=== PATIENT | male | born 1975 | race Caucasian/White ===

== ENCOUNTER 2018-03-20 16:35 | Emergency (ER) | payer MEDICARE, MEDICAID ==
--- NOTE | 2018-03-20 17:00 | ED Physician Chart ---
ED Chief Complaint/HPI - Patient Information Date Seen:: 03/20/18 Time Seen:: 16:35 Chief Complaint:: Agitation History of Present Illness:: onset x 2 days of agitation and aggressive/hostile behavior; no report of trauma , SIs, H/As, neck pain, C/P, SOB, Abd. Pain, A/N/V/D/C, fever, chills, or urinary s/s Allergies:: Allergies Allergy/AdvReac Type Severity Reaction Status Date / Time No Known Allergies Allergy Verified 03/20/18 16:37 Vitals:: Vital Signs - 8 hr 03/20/18 16:39 Temp 97.7 F HR 85 RR 18 BP 107/61 O2 Sat % 96 Historian:: Patient, EMS Review:: Nurse's Note Reviewed, Old Chart Reviewed, EMS run form Reviewed ED Review of Systems - Review of Systems General/Constitutional: No fever, No chills, No weight loss, No weakness, No diaphoresis, No edema, No loss of appetite Skin: No skin lesions, No rash, No bruising Head: No headache, No light-headedness Eyes: No loss of vision, No pain, No diplopia ENT: No earache, No nasal drainage, No sore throat, No tinnitus Neck: No neck pain, No swelling, No thyromegaly, No stiffness, No mass noted Cardio Vascular: No chest pain, No palpitations, No PND, No orthopnea, No edema Pulmonary: No SOB, No cough, No sputum, No wheezing GI: No nausea, No vomiting, No diarrhea, No pain, No melena, No hematochezia, No constipation, No hematemesis G/U: No dysuria, No frequency, No hematuria, No nacturia Musculoskeletal: No bone or joint pain, No back pain, No muscle pain Endocrine: No polyuria, No polydipsia Psychiatric: Prior psych history, Depression, Anxiety, No suicidal ideation, No homicidal ideation, No auditory hallucination, No visual hallucination Hematopoietic: No bruising, No lymphadenopathy Allergic/Immuno: No urticaria, No angioedema Neurological: No syncope, No focal symptoms, No weakness, No paresthesia, No headache, No seizure, No dizziness, No confusion, No vertigo ED Past Medical History - Past Medical History Obtainable: Yes Past Medical History: HTN Family History: HTN Social History: Non Smoker, No Alcohol, No Drug Use, Single, Care Facility Surgical History: None Psychiatricy History: Depression, Bipolar Medication: Reviewed ED Physical Exam - Physical Examination General/Constitutional: Awake, Well-developed, well-nourished, Alert, No distress, GCS 15, Non-toxic appearing, Ambulatory Head: Atraumatic Eyes: Lids, conjuctiva normal, PERRL, EOMI Skin: Nl inspection, No rash, No skin lesions, No ecchymosis, Well hydrated, No lymphadenopathy ENMT: External ears, nose nl, TM canals nl, Nasal exam nl, Lips, teeth, gums nl , Oropharynx nl, Tonsils nl Neck: Nontender, Full ROM w/o pain, No JVD, No nuchal rigidity, No bruit, No mass, No stridor Respiratory: Nl effort/Exclusion, Clear to Auscultation, No Wheeze/Rhonchi/Rales Cardio Vascular: RRR, No murmur, gallop, rubs, NL S1 S2, Carotid/Femoral/Distal pulses equal bilaterally GI: No tenderness/rebounding/guarding, No organomegaly, No hernia, Normal BS's, Nondistended, No mass/bruits, No McBurney tenderness, Rectum exam nl : No CVA tenderness Extremities: No tenderness or effusion, Full ROM, normal strength in all extremities, No edema, Normal digits & nails Neuro/Psych: Alert/oriented, DTR's symmetric, Normal sensory exam, Normal motor strength, Judgement/insight normal, Mood normal, Normal gait, No focal deficits Other Neuro/Psych comments:: + Psychomotor Agitation; no SIs; Mood/Affect: Labile Misc: Normal back, No paraspinal tenderness ED Labs/Radiology/EKG Results - Lab Results Comments:: unremarkable - EKG Interpretations EKG Time:: 16:53 Rate & Rhythm: 78; NSR Comments:: non-specific st-t changes ED Septic Shock - . Is Septic Shock (SBP<90, OR Lactate>4 mmol\L) present?: No - <6hrs of presentation: Vital Signs: Vital Signs - 8 hr 03/20/18 16:39 Temp 97.7 F HR 85 RR 18 BP 107/61 O2 Sat % 96 ED Reassessment (Disposition) - Reassessment Reassessment Condition:: Improved - Diagnosis Diagnosis:: Agitation; Psychosis; Medical Clearance; Bipolar Disorder - Aftercare/Follow up Instructions Aftercare/Follow-Up Instructions:: Counseled pt regarding lab results/diagnosis & need follow up, Counseled pt & family regarding lab results/diagnosis & need follow up - Patient Disposition Discharge/Transfer:: Acute Care w/in this hosp Admitted to:: [facility] Condition at Disposition:: Stable, Improved ED Discharge Plan - Patient Disposition Instructions: Psychosis
[2018-03-20 17:13] LABS: % BASOPHILS 0.5 % (0.0-2.0); % EOSINOPHILS 1.1 % (0.0-5.0); % MONOCYTES 8.9 % (2.0-10.0); % NEUTROPHILS 69.5 % (40.0-80.0); EOSINOPHILE ABSOLUTE 0.1 Th/cmm (0.1-0.4); HEMATOCRIT 39.4 % (41.0-60); HEMOGLOBIN 13.3 gm/dL (12-16); LYMPHOCYTE ABSOLUTE 1.4 Th/cmm (1.5-3.0); MEAN CELL VOLUME 90.4 fl (80-99); MEAN CORPUSCULAR HEMOGLOBIN 30.5 pg (26.0-30.0); MEAN CORPUSCULAR HGB CONC 33.7 pg (28.0-36.0); MONOCYTE ABSOLUTE 0.6 Th/cmm (0.3-1.0); NEUTROPHILE ABSOLUTE 4.8 Th/cmm (1.8-8.0); PLATELET COUNT 250 Th/cmm (150-400); RED BLOOD COUNT 4.36 Mil/cmm (4.30-5.70); RED CELL DISTRIBUTION WIDTH 12.2 % (11.5-20.0); WHITE BLOOD COUNT 6.9 Th/cmm (4.8-10.8)
[2018-03-20 17:30] LABS: ACETAMINOPHEN < 10.0 ug/mL (10.0-30.0); ALB/GLOB RATIO 1.6 (1.0-1.8); ALBUMIN 4.4 gm/dL (4.2-5.5); ALKALINE PHOSPHATASE 63 U/L (34-104); ANION GAP 10.3 (7.0-16.0); BILIRUBIN,TOTAL 0.5 mg/dL (0.3-1.0); BUN - UREA NITROGEN 26 mg/dL (7-25); CALCIUM SERUM 9.7 mg/dL (8.6-10.3); CARBON DIOXIDE 26.6 mEq/L (21.0-31.0); CHLORIDE 110 mEq/L (98-107); CHOLESTEROL 149 mg/dL (<200); GFR AFRICAN-AMERICAN > 60.0 ml/min (>90); GFR NON AFRICAN-AMERICAN > 60.0 ml/min; GLUCOSE 90 mg/dL (70-105); HDL -HIGH DENSITY LIPOPROTEIN 54 mg/dL (23-92); POTASSIUM SERUM 3.9 mEq/L (3.5-5.1); SGOT 21 U/L (13-39); SGPT/ALT 22 U/L (7-52); SODIUM SERUM 143 mEq/L (136-145); TOTAL PROTEIN,SERUM 7.2 gm/dL (6.0-8.3); TRIGLYCERIDES 44 mg/dL (<150)
[2018-03-20 17:44] LABS: SALICYLATES (ASPIRIN) < 25.0 mg/L (30.0-100.0)
[2018-03-20 19:52] LABS: A1C % 5.8 % (4.0-6.0)
== END 2018-03-20 21:38 ==
LOC: ER 16:35
DX: F29 Unspecified psychosis not due to a substance or known physiological condition (principal); F31.9 Bipolar disorder, unspecified; R45.1 Restlessness and agitation; I10 Essential (primary) hypertension
CPT/HCPCS: 36415-UA; 80053-TC; 80061-TC; 80320-TC; 80329-TC; 83036-90; 84443-TC; 85025-TC; 86592-TC; 93005

== ENCOUNTER 2018-09-04 16:16 | Inpatient (IN) | payer MEDICARE, MEDICAID ==
[2018-09-04 16:44] LABS: % BASOPHILS 0.9 % (0.0-2.0); % EOSINOPHILS 5.7 % (0.0-5.0); % LYMPHOCYTES 22.2 % (20.0-50.0); % MONOCYTES 9.6 % (2.0-10.0); % NEUTROPHILS 61.6 % (40.0-80.0); EOSINOPHILE ABSOLUTE 0.3 Th/cmm (0.1-0.4); HEMATOCRIT 43.6 % (41.0-60); HEMOGLOBIN 14.2 gm/dL (12-16); LYMPHOCYTE ABSOLUTE 1.1 Th/cmm (1.5-3.0); MEAN CORPUSCULAR HEMOGLOBIN 29.7 pg (26.0-30.0); MEAN CORPUSCULAR HGB CONC 32.6 pg (28.0-36.0); MEAN PLATELET VOLUME 8.1 fl; MONOCYTE ABSOLUTE 0.5 Th/cmm (0.3-1.0); NEUTROPHILE ABSOLUTE 3.1 Th/cmm (1.8-8.0); PLATELET COUNT 284 Th/cmm (150-400); RED BLOOD COUNT 4.79 Mil/cmm (4.30-5.70)
[2018-09-04 17:01] LABS: ALB/GLOB RATIO 1.2 (1.0-1.8); ALBUMIN 3.9 gm/dL (4.2-5.5); ALKALINE PHOSPHATASE 81 U/L (34-104); ANION GAP 12.2 (7.0-16.0); BILIRUBIN,TOTAL 0.4 mg/dL (0.3-1.0); BUN - UREA NITROGEN 17 mg/dL (7-25); CALCIUM SERUM 9.5 mg/dL (8.6-10.3); CARBON DIOXIDE 26.1 mEq/L (21.0-31.0); CHLORIDE 106 mEq/L (98-107); CHOLESTEROL 156 mg/dL (<200); CREATININE - SERUM 0.7 mg/dL (0.7-1.3); GFR AFRICAN-AMERICAN > 60.0 ml/min (>90); GFR NON AFRICAN-AMERICAN > 60.0 ml/min; GLUCOSE 117 mg/dL (70-105); HDL -HIGH DENSITY LIPOPROTEIN 47 mg/dL (23-92); POTASSIUM SERUM 4.3 mEq/L (3.5-5.1); SALICYLATES (ASPIRIN) < 25.0 mg/L (30.0-100.0); SGOT 17 U/L (13-39); SGPT/ALT 21 U/L (7-52); SODIUM SERUM 140 mEq/L (136-145); TOTAL PROTEIN,SERUM 7.2 gm/dL (6.0-8.3); TRIGLYCERIDES 93 mg/dL (<150)
[2018-09-04 17:05] LABS: ACETAMINOPHEN < 10.0 ug/mL (10.0-30.0)
[2018-09-04 18:14] LABS: URINE BILIRUBIN NEGATIVE (NEGATIVE); URINE BLOOD NEGATIVE (NEGATIVE); URINE GLUCOSE (UA) NEGATIVE (NEGATIVE); URINE KETONE NEGATIVE (NEGATIVE); URINE LEUKOCYTE ESTERASE NEGATIVE (NEGATIVE); URINE NITRATE NEGATIVE (NEGATIVE); URINE PH 7.5 (4.6 - 8.0); URINE PROTEIN NEGATIVE (NEGATIVE); URINE SOURCE CLEAN C; URINE UROBILINOGEN 0.2 E.U./dL (0.2 - 1.0)
[2018-09-04 18:19] LABS: URINE CLARITY CLEAR (CLEAR); URINE COLOR YELLOW; URINE MICROSCOPIC INDICATED? YES
[2018-09-04 18:20] LABS: URINE EPITHELIAL CELLS FEW /lpf (FEW); URINE RBC NONE SEEN /hpf (0-5); URINE WBC 0-2 /hpf (0-5)
[2018-09-04 18:21] LABS: URINE AMORPHOUS SEDIMENT FEW PHOSPHATES (NONE SEEN); URINE BACTERIA FEW /hpf (NONE SEEN)
[2018-09-04 18:25] LABS: AMPHETAMINE URINE NEGATIVE (NEGATIVE); BARBITURATES URINE NEGATIVE (NEGATIVE); BENZODIAZEPINES QUAL URINE POSITIVE (NEGATIVE); CANNABINOID THC NEGATIVE (NEGATIVE); COCAINE METABOLITE QUAL URINE NEGATIVE (NEGATIVE); METHADONE URINE NEGATIVE (NEGATIVE); METHAMPHETAMINES QUAL URINE NEGATIVE (NEGATIVE); OPIATES (MORPHINE) QUAL. URINE NEGATIVE (NEGATIVE); PHENCYCLIDINE (PCP) URINE NEGATIVE (NEGATIVE); TRICYCLICS (TCA) QUAL. URINE POSITIVE (NEGATIVE)
[2018-09-04] MEDS ORDERED: Sodium Chloride 0.9% 1,000 ML IV ONE (19:44)
[2018-09-04 20:01] LABS: INR 0.92 (0.5-1.4); PROTHROMBIN TIME (TEST) 9.6 SECONDS (9.5-11.5)
[2018-09-04 20:17] LABS: ALB/GLOB RATIO 1.2 (1.0-1.8); ALBUMIN 3.9 gm/dL (4.2-5.5); ALKALINE PHOSPHATASE 83 U/L (34-104); ANION GAP 13.4 (7.0-16.0); BILIRUBIN,TOTAL 0.4 mg/dL (0.3-1.0); BUN - UREA NITROGEN 17 mg/dL (7-25); CALCIUM SERUM 9.6 mg/dL (8.6-10.3); CARBON DIOXIDE 23.8 mEq/L (21.0-31.0); CHLORIDE 104 mEq/L (98-107); CREATININE - SERUM 0.8 mg/dL (0.7-1.3); CREATININE KINASE 131 U/L (30-223); GFR AFRICAN-AMERICAN > 60.0 ml/min (>90); GFR NON AFRICAN-AMERICAN > 60.0 ml/min; GLUCOSE 113 mg/dL (70-105); POTASSIUM SERUM 4.2 mEq/L (3.5-5.1); SGOT 17 U/L (13-39); SGPT/ALT 21 U/L (7-52); SODIUM SERUM 137 mEq/L (136-145); TOTAL PROTEIN,SERUM 7.2 gm/dL (6.0-8.3)
[2018-09-04 22:24] VITALS: BP 106/65
[2018-09-04] MEDS: D5-0.45NS 1,000 ML IV SCH (22:42)
[2018-09-05 04:44] LABS: % EOSINOPHILS 2.2 % (0.0-5.0); % LYMPHOCYTES 15.6 % (20.0-50.0); % MONOCYTES 9.7 % (2.0-10.0); % NEUTROPHILS 72.5 % (40.0-80.0); EOSINOPHILE ABSOLUTE 0.2 Th/cmm (0.1-0.4); HEMATOCRIT 42.2 % (41.0-60); LYMPHOCYTE ABSOLUTE 1.3 Th/cmm (1.5-3.0); MEAN CELL VOLUME 90.3 fl (80-99); MEAN CORPUSCULAR HEMOGLOBIN 29.9 pg (26.0-30.0); MEAN CORPUSCULAR HGB CONC 33.1 pg (28.0-36.0); MEAN PLATELET VOLUME 8.1 fl; MONOCYTE ABSOLUTE 0.8 Th/cmm (0.3-1.0); NEUTROPHILE ABSOLUTE 5.8 Th/cmm (1.8-8.0); PLATELET COUNT 304 Th/cmm (150-400); RED BLOOD COUNT 4.68 Mil/cmm (4.30-5.70); RED CELL DISTRIBUTION WIDTH 12.1 % (11.5-20.0); WHITE BLOOD COUNT 8.1 Th/cmm (4.8-10.8)
[2018-09-05] MEDS ORDERED: cefTRIAXone 1 GM in Sodium Chloride 0.9% 50 ML IV ONE (05:04)
--- NOTE | 2018-09-05 05:07 | ED Physician Chart ---
ED Chief Complaint/HPI - Patient Information Date Seen:: 09/04/18 Time Seen:: 16:15 Chief Complaint:: Weakness History of Present Illness:: onset 3 days of weakness, FTT, and poor oral intake; no report of trauma, H/As, LOC, ALOC, AMS, neck pain, cough, C/P, SOB, Abd. Pain, A/N/V/D/C, fever, chills , or urinary s/s Allergies:: Allergies Allergy/AdvReac Type Severity Reaction Status Date / Time No Known Allergies Allergy Verified 03/20/18 16:37 Historian:: Patient, EMS Review:: Nurse's Note Reviewed, Old Chart Reviewed, EMS run form Reviewed ED Review of Systems - Review of Systems General/Constitutional: Fever, No chills, No weight loss, Weakness, No diaphoresis, No edema, No loss of appetite Skin: No skin lesions, No rash, No bruising Head: No headache, No light-headedness Eyes: No loss of vision, No pain, No diplopia ENT: No earache, No nasal drainage, No sore throat, No tinnitus Neck: No neck pain, No swelling, No thyromegaly, No stiffness, No mass noted Cardio Vascular: No chest pain, No palpitations, No PND, No orthopnea, No edema Pulmonary: No SOB, No cough, No sputum, No wheezing GI: No nausea, No vomiting, No diarrhea, No pain, No melena, No hematochezia, No constipation, No hematemesis G/U: No dysuria, No frequency, No hematuria, No nacturia Musculoskeletal: No bone or joint pain, No back pain, No muscle pain Endocrine: No polyuria, No polydipsia Psychiatric: Prior psych history, No depression, Anxiety, No suicidal ideation, No homicidal ideation, No auditory hallucination, No visual hallucination Hematopoietic: No bruising, No lymphadenopathy Allergic/Immuno: No urticaria, No angioedema Neurological: No syncope, No focal symptoms, Weakness, No paresthesia, No headache, No seizure, Dizziness, Confusion, No vertigo ED Past Medical History - Past Medical History Obtainable: Yes Past Medical History: Dyslipidemia, Seizures, Dementia Family History: HTN Social History: Non Smoker, No Alcohol, No Drug Use, Single, Care Facility Surgical History: None Psychiatricy History: Dementia Medication: Reviewed Family Medical History - Family Member Mother History Unknown: Yes ED Physical Exam - Physical Examination General/Constitutional: Awake, Well-developed, well-nourished, Alert, No distress, GCS 15, Non-toxic appearing, Ambulatory Head: Atraumatic Eyes: Lids, conjuctiva normal, PERRL, EOMI Skin: Nl inspection, No rash, No skin lesions, No ecchymosis, No lymphadenopathy Other Skin comments:: Poor Turgor with Dry MM ENMT: External ears, nose nl, TM canals nl, Nasal exam nl, Lips, teeth, gums nl , Oropharynx nl, Tonsils nl Neck: Nontender, Full ROM w/o pain, No JVD, No nuchal rigidity, No bruit, No mass, No stridor Respiratory: Nl effort/Exclusion, Clear to Auscultation, No Wheeze/Rhonchi/Rales Cardio Vascular: RRR, No murmur, gallop, rubs, NL S1 S2, Carotid/Femoral/Distal pulses equal bilaterally GI: No tenderness/rebounding/guarding, No organomegaly, No hernia, Normal BS's, Nondistended, No mass/bruits, No McBurney tenderness, Rectum exam nl : No CVA tenderness Extremities: No tenderness or effusion, Full ROM, normal strength in all extremities, No edema, Normal digits & nails Neuro/Psych: Alert/oriented, DTR's symmetric, Normal sensory exam, Normal motor strength, Judgement/insight normal, Mood normal, Normal gait, No focal deficits Misc: Normal back, No paraspinal tenderness ED Labs/Radiology/EKG Results - Lab Results Results: Laboratory Tests 09/04/18 09/04/18 09/04/18 16:40 16:40 16:40 WBC 5.0 RBC 4.79 Hgb 14.2 Hct 43.6 MCV 91.0 MCH 29.7 MCHC Differential 32.6 RDW 12.0 Plt Count 284 MPV 8.1 Neutrophils % 61.6 Lymphocytes % 22.2 Monocytes % 9.6 Eosinophils % 5.7 H Basophils % 0.9 PT INR PTT (Actin FS) Sodium 140 Potassium 4.3 Chloride 106 Carbon Dioxide 26.1 Anion Gap 12.2 BUN 17 Creatinine 0.7 Est GFR ( Amer) > 60.0 Est GFR (Non-Af Amer) > 60.0 BUN/Creatinine Ratio 24.3 Glucose 117 H Whole Bld Lactic Acid Calcium 9.5 Total Bilirubin 0.4 AST 17 ALT 21 Alkaline Phosphatase 81 Creatine Kinase Troponin I Total Protein 7.2 Albumin 3.9 L Globulin 3.3 Albumin/Globulin Ratio 1.2 Triglycerides 93 Cholesterol 156 LDL Cholesterol Direct 90 HDL Cholesterol 47 TSH 0.64 Urine Source Urine Color Urine Clarity Urine pH Ur Specific [place] Urine Protein Urine Glucose (UA) Urine Ketones Urine Blood Urine Nitrate Urine Bilirubin Urine Urobilinogen Ur Leukocyte Esterase Urine RBC Urine WBC Ur Epithelial Cells Amorphous Sediment Urine Bacteria Salicylates < 25.0 L Urine Opiates Screen Urine Methadone Screen Acetaminophen < 10.0 L Ur Barbiturates Screen Ur Tricyclics Screen Ur Phencyclidine Scrn Amphetamines Screen U Methamphetamines Scrn U Benzodiazepines Scrn U Cocaine Metab Screen U Cannabinoids Screen Ethyl Alcohol < 10 09/04/18 09/04/18 09/04/18 16:40 16:40 16:40 WBC RBC Hgb Hct MCV MCH MCHC Differential RDW Plt Count MPV Neutrophils % Lymphocytes % Monocytes % Eosinophils % Basophils % PT 9.6 INR 0.92 PTT (Actin FS) 25.2 L Sodium 137 Potassium 4.2 Chloride 104 Carbon Dioxide 23.8 Anion Gap 13.4 BUN 17 Creatinine 0.8 Est GFR ( Amer) > 60.0 Est GFR (Non-Af Amer) > 60.0 BUN/Creatinine Ratio 21.3 Glucose 113 H Whole Bld Lactic Acid Calcium 9.6 Total Bilirubin 0.4 AST 17 ALT 21 Alkaline Phosphatase 83 Creatine Kinase 131 Troponin I 0.01 Total Protein 7.2 Albumin 3.9 L Globulin 3.3 Albumin/Globulin Ratio 1.2 Triglycerides Cholesterol LDL Cholesterol Direct HDL Cholesterol TSH Urine Source Urine Color Urine Clarity Urine pH Ur Specific [place] Urine Protein Urine Glucose (UA) Urine Ketones Urine Blood Urine Nitrate Urine Bilirubin Urine Urobilinogen Ur Leukocyte Esterase Urine RBC Urine WBC Ur Epithelial Cells Amorphous Sediment Urine Bacteria Salicylates Urine Opiates Screen Urine Methadone Screen Acetaminophen Ur Barbiturates Screen Ur Tricyclics Screen Ur Phencyclidine Scrn Amphetamines Screen U Methamphetamines Scrn U Benzodiazepines Scrn U Cocaine Metab Screen U Cannabinoids Screen Ethyl Alcohol 09/04/18 09/04/18 09/04/18 16:40 16:50 16:50 WBC RBC Hgb Hct MCV MCH MCHC Differential RDW Plt Count MPV Neutrophils % Lymphocytes % Monocytes % Eosinophils % Basophils % PT INR PTT (Actin FS) Sodium Potassium Chloride Carbon Dioxide Anion Gap BUN Creatinine Est GFR ( Amer) Est GFR (Non-Af Amer) BUN/Creatinine Ratio Glucose Whole Bld Lactic Acid 1.45 Calcium Total Bilirubin AST ALT Alkaline Phosphatase Creatine Kinase Troponin I Total Protein Albumin Globulin Albumin/Globulin Ratio Triglycerides Cholesterol LDL Cholesterol Direct HDL Cholesterol TSH Urine Source CLEAN C Urine Color YELLOW Urine Clarity CLEAR Urine pH 7.5 Ur Specific [place] 1.015 Urine Protein NEGATIVE Urine Glucose (UA) NEGATIVE Urine Ketones NEGATIVE Urine Blood NEGATIVE Urine Nitrate NEGATIVE Urine Bilirubin NEGATIVE Urine Urobilinogen 0.2 Ur Leukocyte Esterase NEGATIVE Urine RBC NONE SEEN Urine WBC 0-2 Ur Epithelial Cells FEW Amorphous Sediment FEW PHOSPHATES Urine Bacteria FEW Salicylates Urine Opiates Screen NEGATIVE Urine Methadone Screen NEGATIVE Acetaminophen Ur Barbiturates Screen NEGATIVE Ur Tricyclics Screen POSITIVE H Ur Phencyclidine Scrn NEGATIVE Amphetamines Screen NEGATIVE U Methamphetamines Scrn NEGATIVE U Benzodiazepines Scrn POSITIVE H U Cocaine Metab Screen NEGATIVE U Cannabinoids Screen NEGATIVE Ethyl Alcohol - Radiology Results Comments:: NAD - EKG Interpretations EKG Time:: 16:45 Rate & Rhythm: 95; NSR Comments:: non-specific st-t changes ED Septic Shock - . Is Septic Shock (SBP<90, OR Lactate>4 mmol\L) present?: No ED Reassessment (Disposition) - Reassessment Reassessment Condition:: Improved - Diagnosis Diagnosis:: Weakness; Failure to Thrive; Poor Oral Intake; Dehydration; UTI - Aftercare/Follow up Instructions Aftercare/Follow-Up Instructions:: Counseled pt regarding lab results/diagnosis & need follow up, Counseled pt & family regarding lab results/diagnosis & need follow up - Patient Disposition Discharge/Transfer:: Acute Care w/in this hosp Accepting Physician:: Dr. Mason Time Called:: 1800 Time Responded:: 18:00 Admitted to:: Telemetry Spoke to:: Dr. Mason Admitting Medical Physician:: Dr. Mason Condition at Disposition:: Stable, Improved
[2018-09-05 05:19] LABS: ALB/GLOB RATIO 1.2 (1.0-1.8); ALBUMIN 3.7 gm/dL (4.2-5.5); ALKALINE PHOSPHATASE 81 U/L (34-104); ANION GAP 11.1 (7.0-16.0); BILIRUBIN,TOTAL 0.5 mg/dL (0.3-1.0); BUN - UREA NITROGEN 14 mg/dL (7-25); CALCIUM SERUM 9.1 mg/dL (8.6-10.3); CARBON DIOXIDE 25.2 mEq/L (21.0-31.0); CHLORIDE 107 mEq/L (98-107); CREATININE - SERUM 0.7 mg/dL (0.7-1.3); GFR AFRICAN-AMERICAN > 60.0 ml/min (>90); GFR NON AFRICAN-AMERICAN > 60.0 ml/min; GLUCOSE 106 mg/dL (70-105); LIPASE 27 U/L (11-82); POTASSIUM SERUM 4.3 mEq/L (3.5-5.1); SGOT 16 U/L (13-39); SGPT/ALT 18 U/L (7-52); SODIUM SERUM 139 mEq/L (136-145); TOTAL PROTEIN,SERUM 6.9 gm/dL (6.0-8.3)
--- NOTE | 2018-09-05 08:48 | Diagnostic Imaging Report ---
CHEST X-RAY: AP view INDICATION: pain COMPARISON: None FINDINGS: The exam is limited due to body habitus. Increased interstitial lung markings are noted with no focal consolidation or effusions. There is mild elevation of right hemidiaphragm. Heart size normal. Osseous structures are intact. IMPRESSION: Increased interstitial lung markings, nonspecific. No focal consolidation identified.
--- NOTE | 2018-09-05 11:31 | History and Physical ---
History of Present Illness - HPI Chief Complaint: weakness HPI: This is a 42 year old male who is a custodial resident admitted to the telemetry unit due to 3 day history of poor oral intake and increase in weakness , no reports of any fevers at the snf. Vital Signs: Last Vital Signs Temp 99.3 F 09/05/18 08:08 Pulse 94 09/05/18 08:08 Resp 18 09/05/18 08:08 BP 115/68 09/05/18 08:08 Pulse Ox 98 09/05/18 08:08 Past Medical History Other History: Dyslipidemia, Seizures, Dementia Family Medical History - Family Member Mother History Unknown: Yes Social History Smoke: No Alcohol: None Drugs: None Lives: Care Home - Medications Home Medications: Home Medication Medication Instructions Recorded Type Acetaminophen [Tylenol] 325 mg PO Q4HR PRN 09/04/18 History Acetaminophen [Tylenol] 650 mg PO Q4HR PRN 09/04/18 History Atorvastatin Calcium [Lipitor] 10 mg PO HS 09/04/18 History Clonazepam [Klonopin] 0.5 mg PO Q12HR 09/04/[address] [Depakote DR] 125 mg PO TID 09/04/18 History Lorazepam [Ativan] 1 mg PO Q6H PRN 09/04/18 History Mirtazapine [Remeron] 7.5 mg PO HS 09/04/18 History Multivitamin with Minerals 1 tab PO DAILY 09/04/18 History [Multivitamins with Minerals] QUEtiapine Fumarate [SEROquel] 25 mg PO DAILY 09/04/18 History QUEtiapine Fumarate [SEROquel] 100 mg PO HS 09/04/18 History - Allergies Allergies/Adverse Reactions: Allergies Allergy/AdvReac Type Severity Reaction Status Date / Time No Known Allergies Allergy Verified 03/20/18 16:37 Review of Systems - Review of Systems Constitutional: Report: Weakness Eyes: Report: No Significant Respiratory: Report: No Significant Cardiovascular: Report: No Significant Neurological: Report: Weakness Physical Exam - Physical Exam HEENT: Report: Ears Nose Throat within normal limits Neck: Report: Within normal limits Cardiovascular Systems: Report: +s1/s2 noted, Regular, Rate and Rhythm Respiratory: Report: Breath Sounds are within normal limits, Clear to Auscultation of lung mayo Abdomen: Report: Non-tender to palpation Skin: Report: Color of skin is within normal limits, Warm, Dry - Lab Results All Lab Results last 24 hours: Laboratory Results - last 24 hr 09/04/18 09/04/18 09/04/18 16:40 16:40 16:40 WBC 5.0 RBC 4.79 Hgb 14.2 Hct 43.6 MCV 91.0 MCH 29.7 MCHC Differential 32.6 RDW 12.0 Plt Count 284 MPV 8.1 Neutrophils % 61.6 Lymphocytes % 22.2 Monocytes % 9.6 Eosinophils % 5.7 H Basophils % 0.9 PT INR PTT (Actin FS) Sodium 140 Potassium 4.3 Chloride 106 Carbon Dioxide 26.1 Anion Gap 12.2 BUN 17 Creatinine 0.7 Est GFR ( Amer) > 60.0 Est GFR (Non-Af Amer) > 60.0 BUN/Creatinine Ratio 24.3 Glucose 117 H Whole Bld Lactic Acid Calcium 9.5 Total Bilirubin 0.4 AST 17 ALT 21 Alkaline Phosphatase 81 Creatine Kinase Troponin I Total Protein 7.2 Albumin 3.9 L Globulin 3.3 Albumin/Globulin Ratio 1.2 Triglycerides 93 Cholesterol 156 LDL Cholesterol Direct 90 HDL Cholesterol 47 Lipase TSH 0.64 Urine Source Urine Color Urine Clarity Urine pH Ur Specific [place] Urine Protein Urine Glucose (UA) Urine Ketones Urine Blood Urine Nitrate Urine Bilirubin Urine Urobilinogen Ur Leukocyte Esterase Urine RBC Urine WBC Ur Epithelial Cells Amorphous Sediment Urine Bacteria Salicylates < 25.0 L Urine Opiates Screen Urine Methadone Screen Acetaminophen < 10.0 L Ur Barbiturates Screen Ur Tricyclics Screen Ur Phencyclidine Scrn Amphetamines Screen U Methamphetamines Scrn U Benzodiazepines Scrn U Cocaine Metab Screen U Cannabinoids Screen Ethyl Alcohol < 10 09/04/18 09/04/18 09/04/18 16:40 16:40 16:40 WBC RBC Hgb Hct MCV MCH MCHC Differential RDW Plt Count MPV Neutrophils % Lymphocytes % Monocytes % Eosinophils % Basophils % PT 9.6 INR 0.92 PTT (Actin FS) 25.2 L Sodium 137 Potassium 4.2 Chloride 104 Carbon Dioxide 23.8 Anion Gap 13.4 BUN 17 Creatinine 0.8 Est GFR ( Amer) > 60.0 Est GFR (Non-Af Amer) > 60.0 BUN/Creatinine Ratio 21.3 Glucose 113 H Whole Bld Lactic Acid Calcium 9.6 Total Bilirubin 0.4 AST 17 ALT 21 Alkaline Phosphatase 83 Creatine Kinase 131 Troponin I 0.01 Total Protein 7.2 Albumin 3.9 L Globulin 3.3 Albumin/Globulin Ratio 1.2 Triglycerides Cholesterol LDL Cholesterol Direct HDL Cholesterol Lipase TSH Urine Source Urine Color Urine Clarity Urine pH Ur Specific [place] Urine Protein Urine Glucose (UA) Urine Ketones Urine Blood Urine Nitrate Urine Bilirubin Urine Urobilinogen Ur Leukocyte Esterase Urine RBC Urine WBC Ur Epithelial Cells Amorphous Sediment Urine Bacteria Salicylates Urine Opiates Screen Urine Methadone Screen Acetaminophen Ur Barbiturates Screen Ur Tricyclics Screen Ur Phencyclidine Scrn Amphetamines Screen U Methamphetamines Scrn U Benzodiazepines Scrn U Cocaine Metab Screen U Cannabinoids Screen Ethyl Alcohol 09/04/18 09/04/18 09/04/18 16:40 16:50 16:50 WBC RBC Hgb Hct MCV MCH MCHC Differential RDW Plt Count MPV Neutrophils % Lymphocytes % Monocytes % Eosinophils % Basophils % PT INR PTT (Actin FS) Sodium Potassium Chloride Carbon Dioxide Anion Gap BUN Creatinine Est GFR ( Amer) Est GFR (Non-Af Amer) BUN/Creatinine Ratio Glucose Whole Bld Lactic Acid 1.45 Calcium Total Bilirubin AST ALT Alkaline Phosphatase Creatine Kinase Troponin I Total Protein Albumin Globulin Albumin/Globulin Ratio Triglycerides Cholesterol LDL Cholesterol Direct HDL Cholesterol Lipase TSH Urine Source CLEAN C Urine Color YELLOW Urine Clarity CLEAR Urine pH 7.5 Ur Specific [place] 1.015 Urine Protein NEGATIVE Urine Glucose (UA) NEGATIVE Urine Ketones NEGATIVE Urine Blood NEGATIVE Urine Nitrate NEGATIVE Urine Bilirubin NEGATIVE Urine Urobilinogen 0.2 Ur Leukocyte Esterase NEGATIVE Urine RBC NONE SEEN Urine WBC 0-2 Ur Epithelial Cells FEW Amorphous Sediment FEW PHOSPHATES Urine Bacteria FEW Salicylates Urine Opiates Screen NEGATIVE Urine Methadone Screen NEGATIVE Acetaminophen Ur Barbiturates Screen NEGATIVE Ur Tricyclics Screen POSITIVE H Ur Phencyclidine Scrn NEGATIVE Amphetamines Screen NEGATIVE U Methamphetamines Scrn NEGATIVE U Benzodiazepines Scrn POSITIVE H U Cocaine Metab Screen NEGATIVE U Cannabinoids Screen NEGATIVE Ethyl Alcohol 09/05/18 09/05/18 09/05/18 04:25 04:25 04:25 WBC 8.1 RBC 4.68 Hgb 14.0 Hct 42.2 MCV 90.3 MCH 29.9 MCHC Differential 33.1 RDW 12.1 Plt Count 304 MPV 8.1 Neutrophils % 72.5 Lymphocytes % 15.6 L Monocytes % 9.7 Eosinophils % 2.2 Basophils % 0.0 PT INR PTT (Actin FS) Sodium 139 Potassium 4.3 Chloride 107 Carbon Dioxide 25.2 Anion Gap 11.1 BUN 14 Creatinine 0.7 Est GFR ( Amer) > 60.0 Est GFR (Non-Af Amer) > 60.0 BUN/Creatinine Ratio 20.0 Glucose 106 H Whole Bld Lactic Acid Calcium 9.1 Total Bilirubin 0.5 AST 16 ALT 18 Alkaline Phosphatase 81 Creatine Kinase Troponin I Total Protein 6.9 Albumin 3.7 L Globulin 3.2 Albumin/Globulin Ratio 1.2 Triglycerides Cholesterol LDL Cholesterol Direct HDL Cholesterol Lipase 27 TSH 0.58 Urine Source Urine Color Urine Clarity Urine pH Ur Specific [place] Urine Protein Urine Glucose (UA) Urine Ketones Urine Blood Urine Nitrate Urine Bilirubin Urine Urobilinogen Ur Leukocyte Esterase Urine RBC Urine WBC Ur Epithelial Cells Amorphous Sediment Urine Bacteria Salicylates Urine Opiates Screen Urine Methadone Screen Acetaminophen Ur Barbiturates Screen Ur Tricyclics Screen Ur Phencyclidine Scrn Amphetamines Screen U Methamphetamines Scrn U Benzodiazepines Scrn U Cocaine Metab Screen U Cannabinoids Screen Ethyl Alcohol - Assessment Assessment: failure to thrive protein calorie malnutrition Dyslipidemia Seizures Dementia - Plan Plan: psych/gi consultation neuro consult ivf for hydration monitor electrolytes closely follow up labs in am
[2018-09-05] MEDS: D5-0.45NS 1,000 ML IV SCH (14:21)
[2018-09-05] MEDS ORDERED: Albuterol Nebulizer 2.5mg/3mL HHN PRN (20:33)
--- NOTE | 2018-09-05 22:07 | Consultation ---
DATE OF CONSULTATION: 09/05/2018 REQUESTING PHYSICIAN: Dr. Mason. REASON FOR CONSULTATION: Poor p.o. intake. HISTORY OF PRESENT ILLNESS: This is a 42-year-old male with history of developmental delay and is a skilled nursing resident, admitted to [facility] for 3 days of poor oral intake as well as increased weakness and some electrolyte imbalances as well. The patient since he has been here has been eating well, has not had any issues per nursing staff and is currently eating 100% of his meals according to the nurse. PAST MEDICAL HISTORY: Dyslipidemia, seizures, and dementia. FAMILY HISTORY: Noncontributory for GI disease. SOCIAL HISTORY: residential resident. HOME MEDICATIONS: Have been reviewed. ALLERGIES: None known. REVIEW OF SYSTEMS: Unable to obtain given the patient's current state. PHYSICAL EXAMINATION: VITAL SIGNS: Temperature 99.3, pulse 94, respirations 18, blood pressure 115/68, pulse ox 98%. GENERAL: He is in no acute distress. HEENT: Normocephalic, atraumatic. PERRL positive. LUNGS: Clear bilaterally. No wheezes, rales, or rhonchi. HEART: Regular rate and rhythm, normal S1, S2. ABDOMEN: Soft, nontender. Bowel sounds are positive. EXTREMITIES: Show no lower extremity edema. PSYCHOLOGICAL: Alert and oriented x 3. LABORATORY DATA: Normal CBC, normal Chem-7. Albumin is 3.9. IMAGING STUDIES: No relevant GI imaging. ASSESSMENT: This is a 42-year-old male, skilled nursing resident, who presents with poor p.o. intake at the skilled nursing. 1. Poor p.o. intake. 2. History of developmental delay and cognitive impairment. PLAN: The patient currently is eating well here in the hospital and is eating 100% of his meals likely with nursing assistance and encouragement. If there are any further episodes of decreased p.o. intake, would recommend p.o. Remeron to assist. Further if there is any difficulty long-term with the feeding, PEG tube could be considered at that time; however, currently is not indicated. We will continue to follow alongside with you. JOB# [id number]
[2018-09-05] MEDS: Atorvastatin Calcium 10 MG TAB PO SCH (23:42)
[2018-09-06] MEDS: Cefepime 1 GM in Sodium Chloride 0.9% 50 ML IV SCH ×3 (01:23→20:50)
[2018-09-06] MEDS: Albuterol Nebulizer 2.5mg/3mL HHN SCH ×4 (02:10→19:20)
[2018-09-06 06:31] LABS: % EOSINOPHILS 0.1 % (0.0-5.0); % LYMPHOCYTES 13.7 % (20.0-50.0); % MONOCYTES 5.5 % (2.0-10.0); % NEUTROPHILS 80.7 % (40.0-80.0); HEMATOCRIT 39.2 % (41.0-60); HEMOGLOBIN 13.3 gm/dL (12-16); LYMPHOCYTE ABSOLUTE 1.8 Th/cmm (1.5-3.0); MEAN CELL VOLUME 89.1 fl (80-99); MEAN CORPUSCULAR HEMOGLOBIN 30.3 pg (26.0-30.0); MEAN PLATELET VOLUME 7.8 fl; MONOCYTE ABSOLUTE 0.7 Th/cmm (0.3-1.0); NEUTROPHILE ABSOLUTE 10.8 Th/cmm (1.8-8.0); PLATELET COUNT 294 Th/cmm (150-400); RED CELL DISTRIBUTION WIDTH 12.1 % (11.5-20.0); WHITE BLOOD COUNT 13.3 Th/cmm (4.8-10.8)
[2018-09-06 06:56] LABS: ANION GAP 12.7 (7.0-16.0); BUN - UREA NITROGEN 21 mg/dL (7-25); CARBON DIOXIDE 22.2 mEq/L (21.0-31.0); CHLORIDE 109 mEq/L (98-107); CREATININE - SERUM 1.1 mg/dL (0.7-1.3); GFR AFRICAN-AMERICAN > 60.0 ml/min (>90); GFR NON AFRICAN-AMERICAN > 60.0 ml/min; GLUCOSE 140 mg/dL (70-105); POTASSIUM SERUM 3.9 mEq/L (3.5-5.1); SODIUM SERUM 140 mEq/L (136-145)
[2018-09-06] MEDS: Multivitamin w/ Minerals Tab PO SCH (08:33)
--- NOTE | 2018-09-06 08:39 | GI Progress Note ---
Subjective - Review of Systems Service Date: 09/06/18 Subjective: Choreatic movements, responds to name Objective - Results Result Diagrams: 09/06/18 06:25 09/06/18 06:25 Recent Labs: Laboratory Last Values WBC 13.3 Th/cmm (4.8-10.8) H 09/06/18 06:25 RBC 4.40 Mil/cmm (4.30-5.70) 09/06/18 06:25 Hgb 13.3 gm/dL (12-16) 09/06/18 06:25 Hct 39.2 % (41.0-60) L 09/06/18 06:25 MCV 89.1 fl (80-99) 09/06/18 06:25 MCH 30.3 pg (26.0-30.0) H 09/06/18 06:25 MCHC Differential 34.0 pg (28.0-36.0) 09/06/18 06:25 RDW 12.1 % (11.5-20.0) 09/06/18 06:25 Plt Count 294 Th/cmm (150-400) 09/06/18 06:25 MPV 7.8 fl 09/06/18 06:25 Neutrophils % 80.7 % (40.0-80.0) H 09/06/18 06:25 Lymphocytes % 13.7 % (20.0-50.0) L 09/06/18 06:25 Monocytes % 5.5 % (2.0-10.0) 09/06/18 06:25 Eosinophils % 0.1 % (0.0-5.0) 09/06/18 06:25 Basophils % 0.0 % (0.0-2.0) 09/06/18 06:25 PT 9.6 SECONDS (9.5-11.5) 09/04/18 16:40 INR 0.92 (0.5-1.4) 09/04/18 16:40 PTT (Actin FS) 25.2 SECONDS (26.0-38.0) L 09/04/18 16:40 Sodium 140 mEq/L (136-145) 09/06/18 06:25 Potassium 3.9 mEq/L (3.5-5.1) 09/06/18 06:25 Chloride 109 mEq/L (98-107) H 09/06/18 06:25 Carbon Dioxide 22.2 mEq/L (21.0-31.0) 09/06/18 06:25 Anion Gap 12.7 (7.0-16.0) 09/06/18 06:25 BUN 21 mg/dL (7-25) 09/06/18 06:25 Creatinine 1.1 mg/dL (0.7-1.3) 09/06/18 06:25 Est GFR ( Amer) > 60.0 ml/min (>90) 09/06/18 06:25 Est GFR (Non-Af Amer) > 60.0 ml/min 09/06/18 06:25 BUN/Creatinine Ratio 19.1 09/06/18 06:25 Glucose 140 mg/dL (70-105) H 09/06/18 06:25 Whole Bld Lactic Acid 1.45 mmol/L (0.60-1.99) 09/04/18 16:40 Calcium 9.0 mg/dL (8.6-10.3) 09/06/18 06:25 Total Bilirubin 0.5 mg/dL (0.3-1.0) 09/05/18 04:25 AST 16 U/L (13-39) 09/05/18 04:25 ALT 18 U/L (7-52) 09/05/18 04:25 Alkaline Phosphatase 81 U/L (34-104) 09/05/18 04:25 Creatine Kinase 131 U/L (30-223) 09/04/18 16:40 Troponin I 0.01 ng/mL (0.01-0.05) 09/04/18 16:40 Total Protein 6.9 gm/dL (6.0-8.3) 09/05/18 04:25 Albumin 3.7 gm/dL (4.2-5.5) L 09/05/18 04:25 Globulin 3.2 gm/dL 09/05/18 04:25 Albumin/Globulin Ratio 1.2 (1.0-1.8) 09/05/18 04:25 Triglycerides 93 mg/dL (<150) 09/04/18 16:40 Cholesterol 156 mg/dL (<200) 09/04/18 16:40 LDL Cholesterol Direct 90 mg/dL (75-193) 09/04/18 16:40 HDL Cholesterol 47 mg/dL (23-92) 09/04/18 16:40 Lipase 27 U/L (11-82) 09/05/18 04:25 TSH 0.58 uIU/ml (0.34-5.60) 09/05/18 04:25 Urine Source CLEAN C 09/04/18 16:50 Urine Color YELLOW 09/04/18 16:50 Urine Clarity CLEAR (CLEAR) 09/04/18 16:50 Urine pH 7.5 (4.6 - 8.0) 09/04/18 16:50 Ur Specific [place] 1.015 (1.005-1.030) 09/04/18 16:50 Urine Protein NEGATIVE mg/dL (NEGATIVE) 09/04/18 16:50 Urine Glucose (UA) NEGATIVE mg/dL (NEGATIVE) 09/04/18 16:50 Urine Ketones NEGATIVE mg/dL (NEGATIVE) 09/04/18 16:50 Urine Blood NEGATIVE (NEGATIVE) 09/04/18 16:50 Urine Nitrate NEGATIVE (NEGATIVE) 09/04/18 16:50 Urine Bilirubin NEGATIVE (NEGATIVE) 09/04/18 16:50 Urine Urobilinogen 0.2 E.U./dL (0.2 - 1.0) 09/04/18 16:50 Ur Leukocyte Esterase NEGATIVE (NEGATIVE) 09/04/18 16:50 Urine RBC NONE SEEN /hpf (0-5) 09/04/18 16:50 Urine WBC 0-2 /hpf (0-5) 09/04/18 16:50 Ur Epithelial Cells FEW /lpf (FEW) 09/04/18 16:50 Amorphous Sediment FEW PHOSPHATES (NONE SEEN) 09/04/18 16:50 Urine Bacteria FEW /hpf (NONE SEEN) 09/04/18 16:50 Salicylates < 25.0 mg/L (30.0-100.0) L 09/04/18 16:40 Urine Opiates Screen NEGATIVE (NEGATIVE) 09/04/18 16:50 Urine Methadone Screen NEGATIVE (NEGATIVE) 09/04/18 16:50 Acetaminophen < 10.0 ug/mL (10.0-30.0) L 09/04/18 16:40 Ur Barbiturates Screen NEGATIVE (NEGATIVE) 09/04/18 16:50 Ur Tricyclics Screen POSITIVE (NEGATIVE) H 09/04/18 16:50 Ur Phencyclidine Scrn NEGATIVE (NEGATIVE) 09/04/18 16:50 Amphetamines Screen NEGATIVE (NEGATIVE) 09/04/18 16:50 U Methamphetamines Scrn NEGATIVE (NEGATIVE) 09/04/18 16:50 U Benzodiazepines Scrn POSITIVE (NEGATIVE) H 09/04/18 16:50 U Cocaine Metab Screen NEGATIVE (NEGATIVE) 09/04/18 16:50 U Cannabinoids Screen NEGATIVE (NEGATIVE) 09/04/18 16:50 Ethyl Alcohol < 10 mg/dL (0-10) 09/04/18 16:40 RPR NONREACTIVE (NONREACTIVE) 09/04/18 16:40 - Physical Exam Vitals and I&O: Vital Signs Temp 97.9 F 09/06/18 07:55 Pulse 92 09/06/18 07:55 Resp 19 09/06/18 07:55 BP 113/68 09/06/18 07:55 Pulse Ox 97 09/06/18 07:55 Intake & Output 09/05/18 09/06/18 09/06/18 18:59 06:59 18:59 Intake Total 1000 Balance 1000 Weight (lbs) 70.08 kg 69.853 kg Intake: Intake, IV Amount 1000 D5-0.45NS 1,000 ml @ 75 1000 mls/hr IV .[id number] [facility] Rx #:[id number] Other: # Voids 2 2 # Bowel Movements 2 Weight Source Bedscale Bedscale Active Medications: Current Medications Acetaminophen (Tylenol) 650 mg PO Q4H PRN PRN Reason: Fever > 101 Stop: 11/04/18 15:06 Last Admin: 09/06/18 04:09 Dose: 650 mg Acetaminophen (Tylenol) 325 mg PO Q4HR PRN PRN Reason: Pain (Mild) Stop: 11/04/18 15:10 Acetaminophen (Tylenol) 650 mg PO Q4HR PRN PRN Reason: Pain (Moderate) Stop: 11/04/18 15:10 Albuterol Sulfate (Albuterol 2.5mg/3ml Neb Ud) 2.5 mg HHN Q4H PRN PRN Reason: Congestion Stop: 11/04/18 20:32 Last Admin: 09/05/18 22:33 Dose: 2.5 mg Albuterol Sulfate (Albuterol 2.5mg/3ml Neb Ud) 2.5 mg HHN Q6HRT [facility] Stop: 11/05/18 00:59 Last Admin: 09/06/18 07:35 Dose: 2.5 mg Atorvastatin Calcium (Lipitor) 10 mg PO HS [facility]; Protocol Stop: 11/04/18 20:59 Last Admin: 09/05/18 23:42 Dose: Not Given Dextrose/Sodium Chloride (D5-0.45ns) 1,000 mls @ 75 mls/hr IV .[id number] [facility] Stop: 11/03/18 22:17 Last Admin: 09/05/18 14:21 Dose: 75 mls/hr Cefepime HCl 1 gm/ Sodium (Chloride) 50 mls @ 100 mls/hr IV Q12HR BILL Stop: 11/05/18 00:00 Last Admin: 09/06/18 01:23 Dose: 100 mls/hr Lorazepam (Ativan) 1 mg IVP Q6HR PRN; Protocol PRN Reason: Agitation Stop: 11/04/18 18:52 Last Admin: 09/05/18 19:01 Dose: 1 mg Miscellaneous (Vancomycin Iv Per Pharmacy) 1 ea MC PRN PRN PRN Reason: PROTOCOL Stop: 11/04/18 22:05 General: Alert HEENT: Atraumatic Neck: Supple Abdomen: Soft, no Tender, no Hepatomegaly, no Splenomegaly, no Rebound, no Mass , no Guarding Skin: no Rash Assessment/Plan - Assessment Assessment: # Cali's chorea # Dementia # Poor oral intake 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 If this is confirmed, this is an incredibly progressive and debilitating disorder that certainly will cause dysphagia, dementia, and behavioral issues as it goes forward. He had reported poor oral intake at his SNF, but has been eating here. HOwever, may have aspirated yesterday and thus we will get a swallow eval now. Plan: - swallowing eval. If he does not pass, will need to find out from his guardian if a G tube is desired. A G tube may extend his life, but will not change the quality of his life at all - NPO until after swallowing eval - IV fluids - can consider neuro consult for Carbon's disease, although there is essentially no management options
[2018-09-06] MEDS: D5-0.45NS 1,000 ML IV SCH (08:54)
--- NOTE | 2018-09-06 09:40 | Diagnostic Imaging Report ---
KUB abdominal film HISTORY: Pain, abdominal distention The exam demonstrates a mild to moderately distended air-filled stomach along with several mildly dilated loops of small bowel and nondilated stool-filled large bowel. There is a distended stool-filled rectum. A degree of fecal impaction/constipation cannot be excluded. Clinical correlation and follow-up is needed. No free intraperitoneal air. IMPRESSION: 1. Mild to moderately distended air-filled stomach along with several mildly dilated air-filled small bowel loops and nondilated colon. Distended stool-filled rectum may be associated with a degree of fecal impaction/constipation. Clinical correlation and follow-up recommended.
[2018-09-06] MEDS ORDERED: Probiotic Screen MC PRN (13:23)
--- NOTE | 2018-09-06 18:20 | Consultation ---
DATE OF CONSULTATION: 09/05/2018 NEUROLOGY CONSULT The patient is a 42-year-old. The patient was noted to be weak. At times agitated. The patient diagnosed of Stafford disease with abnormal movements, mainly chorea, at times athetotic. He was fine during the daytime, little bit more agitated now. The staff tells me that he is able to swallow. He did eat but intake is limited. OTHER DIAGNOSES: Process of depression. Stafford disease as above, muscle weakness. MEDICATIONS: As per reconciliation. The patient has been here on lorazepam. Apparently, he had been in Seroquel, should go back on that or risperidone, Haldol in view of the abnormal movements. SOCIAL HISTORY: Does not smoke or drink. In the facility. REVIEW OF SYSTEMS: The patient's abnormal movements as above. Able to swallow. Not walking. At times agitated. PHYSICAL EXAMINATION: VITAL SIGNS: 99.3 earlier was 101.3, blood pressure 120/68, pulse is 90. NECK: Supple, no bruits. HEART: Sounds S1, S2. LUNGS: Clear. NEUROLOGIC: The patient is lying in bed. He is awake. He verbalizes but no coherent speech at the moment. Follows some instructions. Pupils react to light. Full eye movement, no nystagmus. The patient has abnormal movements of the face, trunk, arms and legs, kind of chorea movements. Reflex about 1+. ASSESSMENT: 1. Weakness. 2. Failure to thrive. 3. The patient with Stafford disease. 4. Urinary tract infection. PLAN: Continue present treatment. The patient will probably need a combination of either Klonopin, Ativan along with Seroquel or other antipsychotic medication from withdrawal of the movement. JOB# [id number]
[2018-09-06] MEDS: Atorvastatin Calcium 10 MG TAB PO SCH (20:56)
[2018-09-07] MEDS: Albuterol Nebulizer 2.5mg/3mL HHN SCH ×4 (01:57→19:17)
[2018-09-07] MEDS: D5-0.45NS 1,000 ML IV SCH ×2 (05:27→21:59)
--- NOTE | 2018-09-07 08:42 | Diagnostic Imaging Report ---
Portable chest x-ray HISTORY: Shortness of breath Compared with prior exam of September 04, 2018, there is suggestion of new faint infiltrate within the left lower lobe. Pneumonia cannot be excluded. Clinical correlation and follow-up recommended. Allowing for poor inspiration, the heart size is normal. No pleural fluid is evident. IMPRESSION: 1. Suggestion of new faint infiltrate within the left lower lobe. Pneumonia cannot be excluded. Clinical correlation and follow-up recommended.
[2018-09-07] MEDS: Cefepime 1 GM in Sodium Chloride 0.9% 50 ML IV SCH ×2 (08:49→21:08)
[2018-09-07] MEDS: Lactobacillus Rhamnosus GG 15 Billion CFU CAP.SPRINK PO SCH (08:50)
[2018-09-07] MEDS: Multivitamin w/ Minerals Tab PO SCH (08:51)
--- NOTE | 2018-09-07 11:04 | GI Progress Note ---
Subjective - Review of Systems Service Date: 09/07/18 Subjective: PASSED SWALLOW EVAL. Objective - Results Result Diagrams: 09/06/18 06:25 09/06/18 06:25 Recent Labs: Laboratory Last Values WBC 13.3 Th/cmm (4.8-10.8) H 09/06/18 06:25 RBC 4.40 Mil/cmm (4.30-5.70) 09/06/18 06:25 Hgb 13.3 gm/dL (12-16) 09/06/18 06:25 Hct 39.2 % (41.0-60) L 09/06/18 06:25 MCV 89.1 fl (80-99) 09/06/18 06:25 MCH 30.3 pg (26.0-30.0) H 09/06/18 06:25 MCHC Differential 34.0 pg (28.0-36.0) 09/06/18 06:25 RDW 12.1 % (11.5-20.0) 09/06/18 06:25 Plt Count 294 Th/cmm (150-400) 09/06/18 06:25 MPV 7.8 fl 09/06/18 06:25 Neutrophils % 80.7 % (40.0-80.0) H 09/06/18 06:25 Lymphocytes % 13.7 % (20.0-50.0) L 09/06/18 06:25 Monocytes % 5.5 % (2.0-10.0) 09/06/18 06:25 Eosinophils % 0.1 % (0.0-5.0) 09/06/18 06:25 Basophils % 0.0 % (0.0-2.0) 09/06/18 06:25 PT 9.6 SECONDS (9.5-11.5) 09/04/18 16:40 INR 0.92 (0.5-1.4) 09/04/18 16:40 PTT (Actin FS) 25.2 SECONDS (26.0-38.0) L 09/04/18 16:40 Sodium 140 mEq/L (136-145) 09/06/18 06:25 Potassium 3.9 mEq/L (3.5-5.1) 09/06/18 06:25 Chloride 109 mEq/L (98-107) H 09/06/18 06:25 Carbon Dioxide 22.2 mEq/L (21.0-31.0) 09/06/18 06:25 Anion Gap 12.7 (7.0-16.0) 09/06/18 06:25 BUN 21 mg/dL (7-25) 09/06/18 06:25 Creatinine 1.1 mg/dL (0.7-1.3) 09/06/18 06:25 Est GFR ( Amer) > 60.0 ml/min (>90) 09/06/18 06:25 Est GFR (Non-Af Amer) > 60.0 ml/min 09/06/18 06:25 BUN/Creatinine Ratio 19.1 09/06/18 06:25 Glucose 140 mg/dL (70-105) H 09/06/18 06:25 Whole Bld Lactic Acid 1.45 mmol/L (0.60-1.99) 09/04/18 16:40 Calcium 9.0 mg/dL (8.6-10.3) 09/06/18 06:25 Total Bilirubin 0.5 mg/dL (0.3-1.0) 09/05/18 04:25 AST 16 U/L (13-39) 09/05/18 04:25 ALT 18 U/L (7-52) 09/05/18 04:25 Alkaline Phosphatase 81 U/L (34-104) 09/05/18 04:25 Creatine Kinase 131 U/L (30-223) 09/04/18 16:40 Troponin I 0.01 ng/mL (0.01-0.05) 09/04/18 16:40 Total Protein 6.9 gm/dL (6.0-8.3) 09/05/18 04:25 Albumin 3.7 gm/dL (4.2-5.5) L 09/05/18 04:25 Globulin 3.2 gm/dL 09/05/18 04:25 Albumin/Globulin Ratio 1.2 (1.0-1.8) 09/05/18 04:25 Triglycerides 93 mg/dL (<150) 09/04/18 16:40 Cholesterol 156 mg/dL (<200) 09/04/18 16:40 LDL Cholesterol Direct 90 mg/dL (75-193) 09/04/18 16:40 HDL Cholesterol 47 mg/dL (23-92) 09/04/18 16:40 Lipase 27 U/L (11-82) 09/05/18 04:25 TSH 0.58 uIU/ml (0.34-5.60) 09/05/18 04:25 Urine Source CLEAN C 09/04/18 16:50 Urine Color YELLOW 09/04/18 16:50 Urine Clarity CLEAR (CLEAR) 09/04/18 16:50 Urine pH 7.5 (4.6 - 8.0) 09/04/18 16:50 Ur Specific [place] 1.015 (1.005-1.030) 09/04/18 16:50 Urine Protein NEGATIVE mg/dL (NEGATIVE) 09/04/18 16:50 Urine Glucose (UA) NEGATIVE mg/dL (NEGATIVE) 09/04/18 16:50 Urine Ketones NEGATIVE mg/dL (NEGATIVE) 09/04/18 16:50 Urine Blood NEGATIVE (NEGATIVE) 09/04/18 16:50 Urine Nitrate NEGATIVE (NEGATIVE) 09/04/18 16:50 Urine Bilirubin NEGATIVE (NEGATIVE) 09/04/18 16:50 Urine Urobilinogen 0.2 E.U./dL (0.2 - 1.0) 09/04/18 16:50 Ur Leukocyte Esterase NEGATIVE (NEGATIVE) 09/04/18 16:50 Urine RBC NONE SEEN /hpf (0-5) 09/04/18 16:50 Urine WBC 0-2 /hpf (0-5) 09/04/18 16:50 Ur Epithelial Cells FEW /lpf (FEW) 09/04/18 16:50 Amorphous Sediment FEW PHOSPHATES (NONE SEEN) 09/04/18 16:50 Urine Bacteria FEW /hpf (NONE SEEN) 09/04/18 16:50 Salicylates < 25.0 mg/L (30.0-100.0) L 09/04/18 16:40 Urine Opiates Screen NEGATIVE (NEGATIVE) 09/04/18 16:50 Urine Methadone Screen NEGATIVE (NEGATIVE) 09/04/18 16:50 Acetaminophen < 10.0 ug/mL (10.0-30.0) L 09/04/18 16:40 Ur Barbiturates Screen NEGATIVE (NEGATIVE) 09/04/18 16:50 Ur Tricyclics Screen POSITIVE (NEGATIVE) H 09/04/18 16:50 Ur Phencyclidine Scrn NEGATIVE (NEGATIVE) 09/04/18 16:50 Amphetamines Screen NEGATIVE (NEGATIVE) 09/04/18 16:50 U Methamphetamines Scrn NEGATIVE (NEGATIVE) 09/04/18 16:50 U Benzodiazepines Scrn POSITIVE (NEGATIVE) H 09/04/18 16:50 U Cocaine Metab Screen NEGATIVE (NEGATIVE) 09/04/18 16:50 U Cannabinoids Screen NEGATIVE (NEGATIVE) 09/04/18 16:50 Ethyl Alcohol < 10 mg/dL (0-10) 09/04/18 16:40 RPR NONREACTIVE (NONREACTIVE) 09/04/18 16:40 - Physical Exam Vitals and I&O: Vital Signs Temp 97.2 F 09/07/18 08:00 Pulse 103 09/07/18 08:00 Resp 20 09/07/18 08:00 BP 97/37 09/07/18 08:00 Pulse Ox 96 09/07/18 08:00 Intake & Output 09/06/18 09/07/18 09/07/18 18:59 06:59 18:59 Intake Total 300 1300 30 Output Total 2 Balance 300 1300 28 Weight (lbs) 69.853 kg Intake: Intake, IV Amount 300 1300 Cefepime 1 gm In Sodium 50 50 Chloride 0.9% 50 ml @ 100 mls/hr IV Q12HR BILL Rx#: [id number] D5-0.45NS 1,000 ml @ 75 1000 mls/hr IV .[id number] BILL Rx #:[id number] Vancomycin HCl 1.25 gm In 250 250 Sodium Chloride 0.9% 250 ml @ 165 mls/hr IV Q12H BILL Rx#:[id number] Oral 30 Output: Stool 2 Other: # Voids 2 Weight Source Bedscale Active Medications: Current Medications Acetaminophen (Tylenol) 650 mg PO Q4H PRN PRN Reason: Fever > 101 Stop: 11/04/18 15:06 Last Admin: 09/06/18 20:57 Dose: 650 mg Acetaminophen (Tylenol) 325 mg PO Q4HR PRN PRN Reason: Pain (Mild) Stop: 11/04/18 15:10 Acetaminophen (Tylenol) 650 mg PO Q4HR PRN PRN Reason: Pain (Moderate) Stop: 11/04/18 15:10 Albuterol Sulfate (Albuterol 2.5mg/3ml Neb Ud) 2.5 mg HHN Q4H PRN PRN Reason: Congestion Stop: 11/04/18 20:32 Last Admin: 09/05/18 22:33 Dose: 2.5 mg Albuterol Sulfate (Albuterol 2.5mg/3ml Neb Ud) 2.5 mg HHN Q6HRT BILL Stop: 11/05/18 00:59 Last Admin: 09/07/18 06:42 Dose: 2.5 mg Atorvastatin Calcium (Lipitor) 10 mg PO HS BILL; Protocol Stop: 11/04/18 20:59 Last Admin: 09/06/18 20:56 Dose: 10 mg Dextrose/Sodium Chloride (D5-0.45ns) 1,000 mls @ 75 mls/hr IV .[id number] BILL Stop: 11/03/18 22:17 Last Admin: 09/07/18 05:27 Dose: 75 mls/hr Cefepime HCl 1 gm/ Sodium (Chloride) 50 mls @ 100 mls/hr IV Q12HR BILL Stop: 11/05/18 00:00 Last Admin: 09/07/18 08:49 Dose: 100 mls/hr Vancomycin HCl 1.25 gm/ Sodium (Chloride) 250 mls @ 165 mls/hr IV Q12H BILL Stop: 11/05/18 12:59 Last Infusion: 09/07/18 02:30 Dose: Infused Lactobacillus Rhamnosus (Culturelle 15b) 1 each PO DAILY BILL Stop: 11/06/18 08:59 Last Admin: 09/07/18 08:50 Dose: 1 each Lorazepam (Ativan) 1 mg IVP Q6HR PRN; Protocol PRN Reason: Agitation Stop: 11/04/18 18:52 Last Admin: 09/07/18 04:25 Dose: 1 mg Miscellaneous (Vancomycin Iv Per Pharmacy) 1 ea [facility] PRN PRN PRN Reason: PROTOCOL Stop: 11/04/18 22:05 Miscellaneous (Probiotic Screen) 1 ea PRN PRN PRN Reason: PROTOCOL Stop: 11/05/18 13:22 General: No acute distress HEENT: Atraumatic Neck: Supple Abdomen: Soft, no Tender, no Hepatomegaly, no Splenomegaly, no Rebound, no Mass , no Guarding Skin: no Rash Assessment/Plan - Assessment Assessment: # Cali's chorea # Dementia # Poor oral intake 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 If this is confirmed, this is an incredibly progressive and debilitating disorder that certainly will cause dysphagia, dementia, and behavioral issues as it goes forward. He had reported poor oral intake at his SNF, but has been eating here. HOwever, may have aspirated recently. He did pass his swallowing evaluation by Speech therapist 09/06. Plan: - Oral diet as per Speech. Aspiration precautions. May need G tube insertion if recurrent aspiration. Will need to find out from his guardian if a G tube is desired. A G tube may extend his life, but will not change the quality of his life at all - IV fluids - can consider neuro consult for Cali's disease, although there is essentially no management options
[2018-09-07] MEDS: Vancomycin HCl 500 MG in Sodium Chloride 0.9% 100 ML IV SCH ×2 (14:23→22:23)
--- NOTE | 2018-09-07 17:14 | Consultation ---
DATE OF CONSULTATION: 09/07/2018 IDENTIFYING INFORMATION: The patient is a 42-year-old male. HISTORY OF PRESENT ILLNESS: The patient is admitted because of poor intake. 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 The patient is a poor historian, unable to participate in meaningful conversation or make safe plan for self-care. The patient is incontinent and needs total care, unable to participate in meaningful conversation or make safe plan for self-care, unpredictable and impulsive. The patient came from a SNF. He has been eating but may have aspirated recently. He did pass a swallowing evaluation by the speech therapist on 09/06/2018, yesterday. He was put on aspiration precautions and he may need a G-tube. The patient is unable to give any information because he cannot talk and stays to himself. He has advanced Cali's chorea. The patient has been on no psychotropic medication. PAST PSYCHIATRIC HISTORY: Unobtainable. MEDICAL HISTORY: Cali's chorea, possible aspiration pneumonia, weakness, poor oral intake. He has hyperlipidemia and asthma. ALLERGIES: He has no known allergies. FAMILY HISTORY: Unobtainable. SOCIAL HISTORY: Unobtainable. MENTAL STATUS EXAMINATION: The patient is in bed, unable to participate in meaningful conversation or make safe plan for self-care, demented, and confused. He has very poor oral intake, unable to provide memory testing or answer any question regarding his condition. His insight and judgment is impaired. IMPRESSION: AXIS I: Depression, not otherwise specified. PLAN: I would recommend to initiate the patient on Remeron 7.5 mg at bedtime. The patient may need to follow up with the psychiatrist upon discharge. Thank you very much for allowing me to participate in the care of this most interesting gentleman. JOB# [id number]
[2018-09-07 18:09] LABS: % BASOPHILS 0.8 % (0.0-2.0); % EOSINOPHILS 5.2 % (0.0-5.0); % LYMPHOCYTES 13.8 % (20.0-50.0); % MONOCYTES 11.8 % (2.0-10.0); % NEUTROPHILS 68.4 % (40.0-80.0); BASOPHILE ABSOLUTE 0.1 Th/cumm (0-0.2); EOSINOPHILE ABSOLUTE 0.4 Th/cmm (0.1-0.4); HEMATOCRIT 35.3 % (41.0-60); HEMOGLOBIN 11.7 gm/dL (12-16); LYMPHOCYTE ABSOLUTE 1.2 Th/cmm (1.5-3.0); MEAN CELL VOLUME 90.5 fl (80-99); MEAN CORPUSCULAR HEMOGLOBIN 30.1 pg (26.0-30.0); MEAN CORPUSCULAR HGB CONC 33.2 pg (28.0-36.0); MEAN PLATELET VOLUME 7.7 fl; NEUTROPHILE ABSOLUTE 5.9 Th/cmm (1.8-8.0); PLATELET COUNT 249 Th/cmm (150-400); RED CELL DISTRIBUTION WIDTH 12.2 % (11.5-20.0); WHITE BLOOD COUNT 8.6 Th/cmm (4.8-10.8)
[2018-09-07 18:26] LABS: ALB/GLOB RATIO 1.1 (1.0-1.8); ALBUMIN 3.3 gm/dL (4.2-5.5); ALKALINE PHOSPHATASE 68 U/L (34-104); ANION GAP 11.1 (7.0-16.0); BILIRUBIN,TOTAL 0.7 mg/dL (0.3-1.0); BUN - UREA NITROGEN 16 mg/dL (7-25); CARBON DIOXIDE 23.9 mEq/L (21.0-31.0); CHLORIDE 109 mEq/L (98-107); CREATININE - SERUM 0.8 mg/dL (0.7-1.3); GFR AFRICAN-AMERICAN > 60.0 ml/min (>90); GFR NON AFRICAN-AMERICAN > 60.0 ml/min; GLUCOSE 125 mg/dL (70-105); SGOT 131 U/L (13-39); SGPT/ALT 86 U/L (7-52); SODIUM SERUM 140 mEq/L (136-145); TOTAL PROTEIN,SERUM 6.3 gm/dL (6.0-8.3)
--- NOTE | 2018-09-07 19:56 | Consultation ---
DATE OF CONSULTATION: 09/06/[address] Mason. Thank you very much Dr. Mason for this consultation. 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 The patient was having lot of congestion and hypoxemia yesterday. He has improved significantly today. He is on Ventimask, comfortable, but still having the muscular movements, less congestion, more awake. His vital not able to be obtained. SOCIAL HISTORY: Unable to obtain as well. PHYSICAL EXAMINATION: VITAL SIGNS: Temperature 98.8, pulse 90, respirations 20, blood pressure 105/55, saturation 98%. HEENT: Atraumatic, normocephalic. Pupils react to light and accommodation. Ears, nose and throat normal. NECK: Supple. No JVD. CHEST: There are few rhonchi bilaterally. HEART: Regular rhythm. ABDOMEN: Soft. EXTREMITIES: Lower extremities, no edema. LABORATORY DATA: WBC is 13.3, hemoglobin 13.3, hematocrit 39.2, platelets is 294. Sodium 140, potassium 3.9, BUN 21, creatinine 1.1. The chest x-ray showed mild haziness in bases, no obvious infiltrates. 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 PLAN: 1. The patient to continue with IV antibiotics. 2. Follow up on cultures. 3. Nebulizer treatment. 4. Continuous oximetry 5. Followup chest x-ray and swallow evaluation as well. Thank you very much for this consultation. We will follow the patient with you. JOB# [id number] [facility]
[2018-09-07] MEDS: Atorvastatin Calcium 10 MG TAB PO SCH (21:06)
[2018-09-08] MEDS: Albuterol Nebulizer 2.5mg/3mL HHN SCH ×4 (00:41→19:26)
[2018-09-08] MEDS: Vancomycin HCl 500 MG in Sodium Chloride 0.9% 100 ML IV SCH (05:23)
--- NOTE | 2018-09-08 08:33 | GI Progress Note ---
Subjective - Review of Systems Service Date: 09/08/18 Subjective: PASSED SWALLOW EVAL. MOI ORAL DIET WHEN FED. Objective - Results Result Diagrams: 09/07/18 18:00 09/07/18 18:00 Recent Labs: Laboratory Last Values WBC 8.6 Th/cmm (4.8-10.8) 09/07/18 18:00 RBC 3.90 Mil/cmm (4.30-5.70) L 09/07/18 18:00 Hgb 11.7 gm/dL (12-16) L 09/07/18 18:00 Hct 35.3 % (41.0-60) L 09/07/18 18:00 MCV 90.5 fl (80-99) 09/07/18 18:00 MCH 30.1 pg (26.0-30.0) H 09/07/18 18:00 MCHC Differential 33.2 pg (28.0-36.0) 09/07/18 18:00 RDW 12.2 % (11.5-20.0) 09/07/18 18:00 Plt Count 249 Th/cmm (150-400) 09/07/18 18:00 MPV 7.7 fl 09/07/18 18:00 Neutrophils % 68.4 % (40.0-80.0) 09/07/18 18:00 Lymphocytes % 13.8 % (20.0-50.0) L 09/07/18 18:00 Monocytes % 11.8 % (2.0-10.0) H 09/07/18 18:00 Eosinophils % 5.2 % (0.0-5.0) H 09/07/18 18:00 Basophils % 0.8 % (0.0-2.0) 09/07/18 18:00 PT 9.6 SECONDS (9.5-11.5) 09/04/18 16:40 INR 0.92 (0.5-1.4) 09/04/18 16:40 PTT (Actin FS) 25.2 SECONDS (26.0-38.0) L 09/04/18 16:40 Sodium 140 mEq/L (136-145) 09/07/18 18:00 Potassium 4.0 mEq/L (3.5-5.1) 09/07/18 18:00 Chloride 109 mEq/L (98-107) H 09/07/18 18:00 Carbon Dioxide 23.9 mEq/L (21.0-31.0) 09/07/18 18:00 Anion Gap 11.1 (7.0-16.0) 18 18:00 BUN 16 mg/dL (7-25) 09/07/18 18:00 Creatinine 0.8 mg/dL (0.7-1.3) 09/07/18 18:00 Est GFR ( Amer) > 60.0 ml/min (>90) 09/07/18 18:00 Est GFR (Non-Af Amer) > 60.0 ml/min 09/07/18 18:00 BUN/Creatinine Ratio 20.0 09/07/18 18:00 Glucose 125 mg/dL (70-105) H 09/07/18 18:00 Whole Bld Lactic Acid 1.45 mmol/L (0.60-1.99) 09/04/18 16:40 Calcium 9.0 mg/dL (8.6-10.3) 09/07/18 18:00 Total Bilirubin 0.7 mg/dL (0.3-1.0) 09/07/18 18:00 AST 131 U/L (13-39) H 09/07/18 18:00 ALT 86 U/L (7-52) H 09/07/18 18:00 Alkaline Phosphatase 68 U/L (34-104) 09/07/18 18:00 Creatine Kinase 131 U/L (30-223) 09/04/18 16:40 Troponin I 0.01 ng/mL (0.01-0.05) 09/04/18 16:40 Total Protein 6.3 gm/dL (6.0-8.3) 09/07/18 18:00 Albumin 3.3 gm/dL (4.2-5.5) L 09/07/18 18:00 Globulin 3.0 gm/dL 09/07/18 18:00 Albumin/Globulin Ratio 1.1 (1.0-1.8) 09/07/18 18:00 Triglycerides 93 mg/dL (<150) 09/04/18 16:40 Cholesterol 156 mg/dL (<200) 09/04/18 16:40 LDL Cholesterol Direct 90 mg/dL (75-193) 09/04/18 16:40 HDL Cholesterol 47 mg/dL (23-92) 09/04/18 16:40 Lipase 27 U/L (11-82) 09/05/18 04:25 TSH 0.58 uIU/ml (0.34-5.60) 09/05/18 04:25 Urine Source CLEAN C 09/04/18 16:50 Urine Color YELLOW 09/04/18 16:50 Urine Clarity CLEAR (CLEAR) 09/04/18 16:50 Urine pH 7.5 (4.6 - 8.0) 09/04/18 16:50 Ur Specific [place] 1.015 (1.005-1.030) 09/04/18 16:50 Urine Protein NEGATIVE mg/dL (NEGATIVE) 09/04/18 16:50 Urine Glucose (UA) NEGATIVE mg/dL (NEGATIVE) 09/04/18 16:50 Urine Ketones NEGATIVE mg/dL (NEGATIVE) 09/04/18 16:50 Urine Blood NEGATIVE (NEGATIVE) 09/04/18 16:50 Urine Nitrate NEGATIVE (NEGATIVE) 09/04/18 16:50 Urine Bilirubin NEGATIVE (NEGATIVE) 09/04/18 16:50 Urine Urobilinogen 0.2 E.U./dL (0.2 - 1.0) 09/04/18 16:50 Ur Leukocyte Esterase NEGATIVE (NEGATIVE) 09/04/18 16:50 Urine RBC NONE SEEN /hpf (0-5) 09/04/18 16:50 Urine WBC 0-2 /hpf (0-5) 09/04/18 16:50 Ur Epithelial Cells FEW /lpf (FEW) 09/04/18 16:50 Amorphous Sediment FEW PHOSPHATES (NONE SEEN) 09/04/18 16:50 Urine Bacteria FEW /hpf (NONE SEEN) 09/04/18 16:50 Vancomycin Trough 9.6 ug/mL (5-10) 09/07/18 12:00 Salicylates < 25.0 mg/L (30.0-100.0) L 09/04/18 16:40 Urine Opiates Screen NEGATIVE (NEGATIVE) 09/04/18 16:50 Urine Methadone Screen NEGATIVE (NEGATIVE) 09/04/18 16:50 Acetaminophen < 10.0 ug/mL (10.0-30.0) L 09/04/18 16:40 Ur Barbiturates Screen NEGATIVE (NEGATIVE) 09/04/18 16:50 Ur Tricyclics Screen POSITIVE (NEGATIVE) H 09/04/18 16:50 Ur Phencyclidine Scrn NEGATIVE (NEGATIVE) 09/04/18 16:50 Amphetamines Screen NEGATIVE (NEGATIVE) 09/04/18 16:50 U Methamphetamines Scrn NEGATIVE (NEGATIVE) 09/04/18 16:50 U Benzodiazepines Scrn POSITIVE (NEGATIVE) H 09/04/18 16:50 U Cocaine Metab Screen NEGATIVE (NEGATIVE) 09/04/18 16:50 U Cannabinoids Screen NEGATIVE (NEGATIVE) 09/04/18 16:50 Ethyl Alcohol < 10 mg/dL (0-10) 09/04/18 16:40 RPR NONREACTIVE (NONREACTIVE) 09/04/18 16:40 - Physical Exam Vitals and I&O: Vital Signs Temp 97.9 F 09/08/18 04:00 Pulse 104 09/08/18 06:54 Resp 16 09/08/18 06:54 BP 119/93 09/08/18 04:00 Pulse Ox 91 09/08/18 06:54 Intake & Output 09/07/18 09/08/18 09/08/18 18:59 06:59 18:59 Intake Total 1180 250 Output Total 2 4 Balance 1178 246 Weight (lbs) 69.853 kg 69.853 kg Intake: Intake, IV Amount 1150 100 Cefepime 1 gm In Sodium 50 Chloride 0.9% 50 ml @ 100 mls/hr IV Q12HR BILL Rx#: [id number] D5-0.45NS 1,000 ml @ 75 1000 mls/hr IV .[id number] BILL Rx #:[id number] Vancomycin HCl 500 mg In 100 100 Sodium Chloride 0.9% 100 ml @ 100 mls/hr IV Q8HR BILL Rx#:[id number] Oral 30 150 Output: Urine 3 Stool 2 1 Other: # Voids 2 Weight Source Bedscale Bedscale Active Medications: Current Medications Acetaminophen (Tylenol) 650 mg PO Q4H PRN PRN Reason: Fever > 101 Stop: 11/04/18 15:06 Last Admin: 09/08/18 02:40 Dose: 650 mg Acetaminophen (Tylenol) 325 mg PO Q4HR PRN PRN Reason: Pain (Mild) Stop: 11/04/18 15:10 Acetaminophen (Tylenol) 650 mg PO Q4HR PRN PRN Reason: Pain (Moderate) Stop: 11/04/18 15:10 Albuterol Sulfate (Albuterol 2.5mg/3ml Neb Ud) 2.5 mg HHN Q4H PRN PRN Reason: Congestion Stop: 11/04/18 20:32 Last Admin: 09/05/18 22:33 Dose: 2.5 mg Albuterol Sulfate (Albuterol 2.5mg/3ml Neb Ud) 2.5 mg HHN Q6HRT BILL Stop: 11/05/18 00:59 Last Admin: 09/08/18 06:50 Dose: 2.5 mg Atorvastatin Calcium (Lipitor) 10 mg PO HS BILL; Protocol Stop: 11/04/18 20:59 Last Admin: 09/07/18 21:06 Dose: 10 mg Dextrose/Sodium Chloride (D5-0.45ns) 1,000 mls @ 75 mls/hr IV .[id number] [facility] Stop: 11/03/18 22:17 Last Admin: 09/07/18 21:59 Dose: 75 mls/hr Cefepime HCl 1 gm/ Sodium (Chloride) 50 mls @ 100 mls/hr IV Q12HR BILL Stop: 11/05/18 00:00 Last Admin: 09/07/18 21:08 Dose: 100 mls/hr Vancomycin HCl 500 mg/ Sodium (Chloride) 100 mls @ 100 mls/hr IV Q8HR [facility] Stop: 11/06/18 14:09 Last Admin: 09/08/18 05:23 Dose: 100 mls/hr Lactobacillus Rhamnosus (Culturelle 15b) 1 each PO DAILY BILL Stop: 11/06/18 08:59 Last Admin: 09/07/18 08:50 Dose: 1 each Lorazepam (Ativan) 1 mg IVP Q6HR PRN; Protocol PRN Reason: Agitation Stop: 11/04/18 18:52 Last Admin: 09/07/18 12:39 Dose: 1 mg Mirtazapine (Remeron) 7.5 mg PO HS [facility]; Protocol Stop: 11/06/18 20:59 Miscellaneous (Vancomycin Iv Per Pharmacy) 1 ea PRN PRN PRN Reason: PROTOCOL Stop: 11/04/18 22:05 Miscellaneous (Probiotic Screen) 1 ea MC PRN PRN PRN Reason: PROTOCOL Stop: 11/05/18 13:22 General: No acute distress HEENT: Atraumatic Neck: Supple Abdomen: Soft, no Tender, no Hepatomegaly, no Splenomegaly, no Rebound, no Mass , no Guarding Skin: no Rash Assessment/Plan - Assessment Assessment: # Cali's chorea # Dementia # Poor oral intake 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 If this is confirmed, this is an incredibly progressive and debilitating disorder that certainly will cause dysphagia, dementia, and behavioral issues as it goes forward. He had reported poor oral intake at his SNF, but has been eating here. However, may have aspirated recently. He did pass his swallowing evaluation by Speech therapist 09/06. Plan: - Oral diet as per Speech. Aspiration precautions. May need G tube insertion if recurrent aspiration. Will need to find out from his guardian if a G tube is desired. A G tube may extend his life, but will not change the quality of his life at all - IV fluids as needed. - Pending Neuro consult for Cass's disease, although there are essentially no management options
--- NOTE | 2018-09-08 08:44 | Internal Medicine Prog Note ---
Internal Medicine Subjective - Subjective Patient seen and examined:: chart reviewed, other (awake alert, in no distress swallow eval was passed) Patient is:: awake Per staff patient has:: no adverse event Internal Medicine Objective - Results Result Diagrams: 09/07/18 18:00 09/07/18 18:00 Recent Labs: Laboratory Last Values WBC 8.6 Th/cmm (4.8-10.8) 09/07/18 18:00 RBC 3.90 Mil/cmm (4.30-5.70) L 09/07/18 18:00 Hgb 11.7 gm/dL (12-16) L 09/07/18 18:00 Hct 35.3 % (41.0-60) L 09/07/18 18:00 MCV 90.5 fl (80-99) 09/07/18 18:00 MCH 30.1 pg (26.0-30.0) H 09/07/18 18:00 MCHC Differential 33.2 pg (28.0-36.0) 09/07/18 18:00 RDW 12.2 % (11.5-20.0) 09/07/18 18:00 Plt Count 249 Th/cmm (150-400) 09/07/18 18:00 MPV 7.7 fl 09/07/18 18:00 Neutrophils % 68.4 % (40.0-80.0) 09/07/18 18:00 Lymphocytes % 13.8 % (20.0-50.0) L 09/07/18 18:00 Monocytes % 11.8 % (2.0-10.0) H 09/07/18 18:00 Eosinophils % 5.2 % (0.0-5.0) H 09/07/18 18:00 Basophils % 0.8 % (0.0-2.0) 09/07/18 18:00 PT 9.6 SECONDS (9.5-11.5) 09/04/18 16:40 INR 0.92 (0.5-1.4) 09/04/18 16:40 PTT (Actin FS) 25.2 SECONDS (26.0-38.0) L 09/04/18 16:40 Sodium 140 mEq/L (136-145) 18 18:00 Potassium 4.0 mEq/L (3.5-5.1) 09/07/18 18:00 Chloride 109 mEq/L (98-107) H 09/07/18 18:00 Carbon Dioxide 23.9 mEq/L (21.0-31.0) 09/07/18 18:00 Anion Gap 11.1 (7.0-16.0) 09/07/18 18:00 BUN 16 mg/dL (7-25) 09/07/18 18:00 Creatinine 0.8 mg/dL (0.7-1.3) 09/07/18 18:00 Est GFR ( Amer) > 60.0 ml/min (>90) 09/07/18 18:00 Est GFR (Non-Af Amer) > 60.0 ml/min 09/07/18 18:00 BUN/Creatinine Ratio 20.0 09/07/18 18:00 Glucose 125 mg/dL (70-105) H 09/07/18 18:00 Whole Bld Lactic Acid 1.45 mmol/L (0.60-1.99) 09/04/18 16:40 Calcium 9.0 mg/dL (8.6-10.3) 09/07/18 18:00 Total Bilirubin 0.7 mg/dL (0.3-1.0) 09/07/18 18:00 AST 131 U/L (13-39) H 09/07/18 18:00 ALT 86 U/L (7-52) H 09/07/18 18:00 Alkaline Phosphatase 68 U/L (34-104) 09/07/18 18:00 Creatine Kinase 131 U/L (30-223) 09/04/18 16:40 Troponin I 0.01 ng/mL (0.01-0.05) 09/04/18 16:40 Total Protein 6.3 gm/dL (6.0-8.3) 09/07/18 18:00 Albumin 3.3 gm/dL (4.2-5.5) L 09/07/18 18:00 Globulin 3.0 gm/dL 09/07/18 18:00 Albumin/Globulin Ratio 1.1 (1.0-1.8) 18 18:00 Triglycerides 93 mg/dL (<150) 09/04/18 16:40 Cholesterol 156 mg/dL (<200) 09/04/18 16:40 LDL Cholesterol Direct 90 mg/dL (75-193) 09/04/18 16:40 HDL Cholesterol 47 mg/dL (23-92) 09/04/18 16:40 Lipase 27 U/L (11-82) 09/05/18 04:25 TSH 0.58 uIU/ml (0.34-5.60) 09/05/18 04:25 Urine Source CLEAN C 09/04/18 16:50 Urine Color YELLOW 09/04/18 16:50 Urine Clarity CLEAR (CLEAR) 09/04/18 16:50 Urine pH 7.5 (4.6 - 8.0) 09/04/18 16:50 Ur Specific [place] 1.015 (1.005-1.030) 09/04/18 16:50 Urine Protein NEGATIVE mg/dL (NEGATIVE) 09/04/18 16:50 Urine Glucose (UA) NEGATIVE mg/dL (NEGATIVE) 09/04/18 16:50 Urine Ketones NEGATIVE mg/dL (NEGATIVE) 09/04/18 16:50 Urine Blood NEGATIVE (NEGATIVE) 09/04/18 16:50 Urine Nitrate NEGATIVE (NEGATIVE) 09/04/18 16:50 Urine Bilirubin NEGATIVE (NEGATIVE) 09/04/18 16:50 Urine Urobilinogen 0.2 E.U./dL (0.2 - 1.0) 09/04/18 16:50 Ur Leukocyte Esterase NEGATIVE (NEGATIVE) 09/04/18 16:50 Urine RBC NONE SEEN /hpf (0-5) 09/04/18 16:50 Urine WBC 0-2 /hpf (0-5) 09/04/18 16:50 Ur Epithelial Cells FEW /lpf (FEW) 09/04/18 16:50 Amorphous Sediment FEW PHOSPHATES (NONE SEEN) 09/04/18 16:50 Urine Bacteria FEW /hpf (NONE SEEN) 09/04/18 16:50 Vancomycin Trough 9.6 ug/mL (5-10) 09/07/18 12:00 Salicylates < 25.0 mg/L (30.0-100.0) L 09/04/18 16:40 Urine Opiates Screen NEGATIVE (NEGATIVE) 09/04/18 16:50 Urine Methadone Screen NEGATIVE (NEGATIVE) 09/04/18 16:50 Acetaminophen < 10.0 ug/mL (10.0-30.0) L 09/04/18 16:40 Ur Barbiturates Screen NEGATIVE (NEGATIVE) 09/04/18 16:50 Ur Tricyclics Screen POSITIVE (NEGATIVE) H 09/04/18 16:50 Ur Phencyclidine Scrn NEGATIVE (NEGATIVE) 09/04/18 16:50 Amphetamines Screen NEGATIVE (NEGATIVE) 09/04/18 16:50 U Methamphetamines Scrn NEGATIVE (NEGATIVE) 09/04/18 16:50 U Benzodiazepines Scrn POSITIVE (NEGATIVE) H 09/04/18 16:50 U Cocaine Metab Screen NEGATIVE (NEGATIVE) 09/04/18 16:50 U Cannabinoids Screen NEGATIVE (NEGATIVE) 09/04/18 16:50 Ethyl Alcohol < 10 mg/dL (0-10) 09/04/18 16:40 RPR NONREACTIVE (NONREACTIVE) 09/04/18 16:40 - Physical Exam Vitals and I&O: Vital Signs Temp 97.9 F 09/08/18 04:00 Pulse 104 09/08/18 06:54 Resp 16 09/08/18 06:54 BP 119/93 09/08/18 04:00 Pulse Ox 91 09/08/18 06:54 Intake & Output 09/07/18 09/08/18 09/08/18 18:59 06:59 18:59 Intake Total 1180 250 Output Total 2 4 Balance 1178 246 Weight (lbs) 69.853 kg 69.853 kg Intake: Intake, IV Amount 1150 100 Cefepime 1 gm In Sodium 50 Chloride 0.9% 50 ml @ 100 mls/hr IV Q12HR BILL Rx#: [id number] D5-0.45NS 1,000 ml @ 75 1000 mls/hr IV .[id number] BILL Rx #:[id number] Vancomycin HCl 500 mg In 100 100 Sodium Chloride 0.9% 100 ml @ 100 mls/hr IV Q8HR BILL Rx#:[id number] Oral 30 150 Output: Urine 3 Stool 2 1 Other: # Voids 2 Weight Source Bedscale Bedscale Active Medications: Current Medications Acetaminophen (Tylenol) 650 mg PO Q4H PRN PRN Reason: Fever > 101 Stop: 11/04/18 15:06 Last Admin: 09/08/18 02:40 Dose: 650 mg Acetaminophen (Tylenol) 325 mg PO Q4HR PRN PRN Reason: Pain (Mild) Stop: 11/04/18 15:10 Acetaminophen (Tylenol) 650 mg PO Q4HR PRN PRN Reason: Pain (Moderate) Stop: 11/04/18 15:10 Albuterol Sulfate (Albuterol 2.5mg/3ml Neb Ud) 2.5 mg HHN Q4H PRN PRN Reason: Congestion Stop: 11/04/18 20:32 Last Admin: 09/05/18 22:33 Dose: 2.5 mg Albuterol Sulfate (Albuterol 2.5mg/3ml Neb Ud) 2.5 mg HHN Q6HRT BILL Stop: 11/05/18 00:59 Last Admin: 09/08/18 06:50 Dose: 2.5 mg Atorvastatin Calcium (Lipitor) 10 mg PO HS [facility]; Protocol Stop: 11/04/18 20:59 Last Admin: 09/07/18 21:06 Dose: 10 mg Dextrose/Sodium Chloride (D5-0.45ns) 1,000 mls @ 75 mls/hr IV .[id number] [facility] Stop: 11/03/18 22:17 Last Admin: 09/07/18 21:59 Dose: 75 mls/hr Cefepime HCl 1 gm/ Sodium (Chloride) 50 mls @ 100 mls/hr IV Q12HR [facility] Stop: 11/05/18 00:00 Last Admin: 09/07/18 21:08 Dose: 100 mls/hr Vancomycin HCl 500 mg/ Sodium (Chloride) 100 mls @ 100 mls/hr IV Q8HR [facility] Stop: 11/06/18 14:09 Last Admin: 09/08/18 05:23 Dose: 100 mls/hr Lactobacillus Rhamnosus (Culturelle 15b) 1 each PO DAILY [facility] Stop: 11/06/18 08:59 Last Admin: 09/07/18 08:50 Dose: 1 each Lorazepam (Ativan) 1 mg IVP Q6HR PRN; Protocol PRN Reason: Agitation Stop: 11/04/18 18:52 Last Admin: 09/07/18 12:39 Dose: 1 mg Mirtazapine (Remeron) 7.5 mg PO HS [facility]; Protocol Stop: 11/06/18 20:59 Miscellaneous (Vancomycin Iv Per Pharmacy) 1 ea MC PRN PRN PRN Reason: PROTOCOL Stop: 11/04/18 22:05 Miscellaneous (Probiotic Screen) 1 ea MC PRN PRN PRN Reason: PROTOCOL Stop: 11/05/18 13:22 General: alert HEENT: NC/AT Neck: Supple Lungs: CTAB Cardiovascular: Normal S1, Normal S2 Abdomen: soft, non-tender Extremities: clear Internal Medicine Assmt/Plan - Assessment Assessment: poor oral intake dementia huntingtons chorea - Plan Plan: as per order sheet Nutritional Asmnt/Malnutr-PDOC - Dietary Evaluation Malnutrition Findings (Please click <Entered> for more info): Nutritional Asmnt/Malnutrition Start: 09/05/18 12: 57 Text: Status: Complete Freq: Protocol: Document 09/05/18 12:57 NADEGE (Rec: 09/05/18 13:13 NADEGE [email or web address]) Nutritional Asmnt/Malnutrition Patient General Information Nutritional Screening High Risk Consult Diagnosis FTT, generalized weakness Pertinent Medical Hx/Surgical Hx dyslipidemia, seizures, dementia [place]'s Disease (per nurse note) Subjective Information Received diet consult for FTT. Poor oral intake x 3 days before admission per MD note, Pt is confused and disoriented and unable to speak w/ RD. Pt appears to require assistance w/ meals. Spoke with RN Gabby who stated pt consumed 100% of breakfast this morning. Current Diet Order/ Nutrition Support pureed, double portions Pertinent Medications D5-0.45ns Pertinent Labs 09/05: glucose 106, Alb 3.7 09/04: glucose 113-117, Alb 3. 9 Nutritional Hx/Data Height 1.73 m Height (Calculated Centimeters) 172.7 Current Weight (lbs) 70.08 kg Weight (Calculated Kilograms) 70.1 Weight (Calculated Grams) 95343.0 [place] Body Weight 154 lb Body Mass Index (BMI) 23.5 Weight Status Approriate GI Symptoms GI Symptoms None Last BM none noted Difficult in: None Food Allergies No Skin Integrity/Comment: jolie, cassius 12 scars Estimated Nutritional Goals BEE in Kcals: Using Current wt Calories/Kcals/Kg 27-30 Kcals Calculated 5322-8128 Protein: Using Current wt Protein g/k Protein Calculated 70 g Fluid: ml 7762-2825 (1 ml/kcal) Nutritional Problem 1. Problem Problem Inadequate oral intake Etiology possible poor appetite before admission Signs/Symptoms: poor oral intake and weakness x 3 days before admission per MD note Malnutrition Related to Morbid Obesity Malnutrition related to morbid obesity No Intervention/Recommendation Comments 1. Continue with pureed diet w / double portions as ordered and assist with meals as needed 2. Consider adding nutrition supplement if PO intake <50% 3. Monitor PO intake, wt, labs and skin integrity 4. F/U as risk in 2-3 days, - Expected Outcomes/Goals Expected Outcomes/Goals 1. PO intake to meet at least 50% of all meals w/ double portions 2. Wt stability, skin to remain intact, labs to approach WNL Reviewed by Ni Vergara RD
[2018-09-08] MEDS: Cefepime 1 GM in Sodium Chloride 0.9% 50 ML IV SCH ×2 (09:12→22:28)
[2018-09-08] MEDS: Lactobacillus Rhamnosus GG 15 Billion CFU CAP.SPRINK PO SCH (09:13)
[2018-09-08] MEDS: Multivitamin w/ Minerals Tab PO SCH (09:13)
--- NOTE | 2018-09-08 09:52 | Diagnostic Imaging Report ---
Portable chest x-ray History: Shortness of breath Allowing for portable technique the heart size is normal. No focal pulmonary parenchymal processes. No hilar or mediastinal abnormalities. Impression: No acute abnormalities.
--- NOTE | 2018-09-08 21:13 | Progress Notes ---
DATE: 09/08/2018 Case was discussed with staff of the patient, reviewed records. The patient has been rambling, irritable. He has Cali's chorea. He is unable to make safe plan for self-care or participate in a meaningful conversation. I initiated Remeron on him, no side effects, that usually also help with movement disorder, depression, anxiety, and poor appetite. He was admitted because of poor intake, weakness and the patient will need followup with the psychiatrist upon discharge. Thank you very much for allowing me to participate in care of this most interesting gentleman. JOB# [id number]
[2018-09-08] MEDS: Atorvastatin Calcium 10 MG TAB PO SCH (22:29)
[2018-09-09] MEDS: Albuterol Nebulizer 2.5mg/3mL HHN SCH ×3 (00:20→13:54)
[2018-09-09] MEDS: D5-0.45NS 1,000 ML IV SCH ×2 (06:09→09:28)
[2018-09-09 07:33] LABS: % BASOPHILS 0.6 % (0.0-2.0); % EOSINOPHILS 4.1 % (0.0-5.0); % LYMPHOCYTES 17.7 % (20.0-50.0); % MONOCYTES 11.6 % (2.0-10.0); EOSINOPHILE ABSOLUTE 0.3 Th/cmm (0.1-0.4); HEMATOCRIT 37.9 % (41.0-60); HEMOGLOBIN 12.8 gm/dL (12-16); LYMPHOCYTE ABSOLUTE 1.3 Th/cmm (1.5-3.0); MEAN CELL VOLUME 90.3 fl (80-99); MEAN CORPUSCULAR HEMOGLOBIN 30.6 pg (26.0-30.0); MEAN CORPUSCULAR HGB CONC 33.9 pg (28.0-36.0); MEAN PLATELET VOLUME 7.9 fl; MONOCYTE ABSOLUTE 0.8 Th/cmm (0.3-1.0); NEUTROPHILE ABSOLUTE 4.7 Th/cmm (1.8-8.0); PLATELET COUNT 269 Th/cmm (150-400); RED BLOOD COUNT 4.19 Mil/cmm (4.30-5.70); RED CELL DISTRIBUTION WIDTH 12.2 % (11.5-20.0); WHITE BLOOD COUNT 7.1 Th/cmm (4.8-10.8)
[2018-09-09 07:42] LABS: ANION GAP 12.6 (7.0-16.0); BUN - UREA NITROGEN 14 mg/dL (7-25); CALCIUM SERUM 9.5 mg/dL (8.6-10.3); CARBON DIOXIDE 25.3 mEq/L (21.0-31.0); CHLORIDE 112 mEq/L (98-107); CREATININE - SERUM 0.8 mg/dL (0.7-1.3); GFR AFRICAN-AMERICAN > 60.0 ml/min (>90); GFR NON AFRICAN-AMERICAN > 60.0 ml/min; GLUCOSE 99 mg/dL (70-105); POTASSIUM SERUM 3.9 mEq/L (3.5-5.1); SODIUM SERUM 146 mEq/L (136-145)
--- NOTE | 2018-09-09 07:55 | GI Progress Note ---
Subjective - Review of Systems Service Date: 09/09/18 Subjective: Pt eats, but must be fed slowly and deliberately Objective - Results Result Diagrams: 09/09/18 07:20 09/09/18 07:20 Recent Labs: Laboratory Last Values WBC 7.1 Th/cmm (4.8-10.8) 09/09/18 07:20 RBC 4.19 Mil/cmm (4.30-5.70) L 09/09/18 07:20 Hgb 12.8 gm/dL (12-16) 09/09/18 07:20 Hct 37.9 % (41.0-60) L 09/09/18 07:20 MCV 90.3 fl (80-99) 09/09/18 07:20 MCH 30.6 pg (26.0-30.0) H 09/09/18 07:20 MCHC Differential 33.9 pg (28.0-36.0) 09/09/18 07:20 RDW 12.2 % (11.5-20.0) 09/09/18 07:20 Plt Count 269 Th/cmm (150-400) 09/09/18 07:20 MPV 7.9 fl 09/09/18 07:20 Neutrophils % 66.0 % (40.0-80.0) 09/09/18 07:20 Lymphocytes % 17.7 % (20.0-50.0) L 09/09/18 07:20 Monocytes % 11.6 % (2.0-10.0) H 09/09/18 07:20 Eosinophils % 4.1 % (0.0-5.0) 09/09/18 07:20 Basophils % 0.6 % (0.0-2.0) 09/09/18 07:20 PT 9.6 SECONDS (9.5-11.5) 09/04/18 16:40 INR 0.92 (0.5-1.4) 09/04/18 16:40 PTT (Actin FS) 25.2 SECONDS (26.0-38.0) L 09/04/18 16:40 Sodium 146 mEq/L (136-145) H 09/09/18 07:20 Potassium 3.9 mEq/L (3.5-5.1) 09/09/18 07:20 Chloride 112 mEq/L (98-107) H 09/09/18 07:20 Carbon Dioxide 25.3 mEq/L (21.0-31.0) 09/09/18 07:20 Anion Gap 12.6 (7.0-16.0) 09/09/18 07:20 BUN 14 mg/dL (7-25) 09/09/18 07:20 Creatinine 0.8 mg/dL (0.7-1.3) 09/09/18 07:20 Est GFR ( Amer) > 60.0 ml/min (>90) 09/09/18 07:20 Est GFR (Non-Af Amer) > 60.0 ml/min 09/09/18 07:20 BUN/Creatinine Ratio 17.5 09/09/18 07:20 Glucose 99 mg/dL (70-105) 09/09/18 07:20 Whole Bld Lactic Acid 1.45 mmol/L (0.60-1.99) 09/04/18 16:40 Calcium 9.5 mg/dL (8.6-10.3) 09/09/18 07:20 Total Bilirubin 0.7 mg/dL (0.3-1.0) 09/07/18 18:00 AST 131 U/L (13-39) H 09/07/18 18:00 ALT 86 U/L (7-52) H 09/07/18 18:00 Alkaline Phosphatase 68 U/L (34-104) 09/07/18 18:00 Creatine Kinase 131 U/L (30-223) 09/04/18 16:40 Troponin I 0.01 ng/mL (0.01-0.05) 09/04/18 16:40 Total Protein 6.3 gm/dL (6.0-8.3) 09/07/18 18:00 Albumin 3.3 gm/dL (4.2-5.5) L 09/07/18 18:00 Globulin 3.0 gm/dL 09/07/18 18:00 Albumin/Globulin Ratio 1.1 (1.0-1.8) 09/07/18 18:00 Triglycerides 93 mg/dL (<150) 09/04/18 16:40 Cholesterol 156 mg/dL (<200) 09/04/18 16:40 LDL Cholesterol Direct 90 mg/dL (75-193) 09/04/18 16:40 HDL Cholesterol 47 mg/dL (23-92) 09/04/18 16:40 Lipase 27 U/L (11-82) 09/05/18 04:25 TSH 0.58 uIU/ml (0.34-5.60) 09/05/18 04:25 Urine Source CLEAN C 09/04/18 16:50 Urine Color YELLOW 09/04/18 16:50 Urine Clarity CLEAR (CLEAR) 09/04/18 16:50 Urine pH 7.5 (4.6 - 8.0) 09/04/18 16:50 Ur Specific [place] 1.015 (1.005-1.030) 09/04/18 16:50 Urine Protein NEGATIVE mg/dL (NEGATIVE) 09/04/18 16:50 Urine Glucose (UA) NEGATIVE mg/dL (NEGATIVE) 09/04/18 16:50 Urine Ketones NEGATIVE mg/dL (NEGATIVE) 09/04/18 16:50 Urine Blood NEGATIVE (NEGATIVE) 09/04/18 16:50 Urine Nitrate NEGATIVE (NEGATIVE) 09/04/18 16:50 Urine Bilirubin NEGATIVE (NEGATIVE) 09/04/18 16:50 Urine Urobilinogen 0.2 E.U./dL (0.2 - 1.0) 09/04/18 16:50 Ur Leukocyte Esterase NEGATIVE (NEGATIVE) 09/04/18 16:50 Urine RBC NONE SEEN /hpf (0-5) 09/04/18 16:50 Urine WBC 0-2 /hpf (0-5) 09/04/18 16:50 Ur Epithelial Cells FEW /lpf (FEW) 09/04/18 16:50 Amorphous Sediment FEW PHOSPHATES (NONE SEEN) 09/04/18 16:50 Urine Bacteria FEW /hpf (NONE SEEN) 09/04/18 16:50 Vancomycin Trough 9.3 ug/mL (5-10) 09/08/18 11:49 Salicylates < 25.0 mg/L (30.0-100.0) L 09/04/18 16:40 Urine Opiates Screen NEGATIVE (NEGATIVE) 09/04/18 16:50 Urine Methadone Screen NEGATIVE (NEGATIVE) 09/04/18 16:50 Acetaminophen < 10.0 ug/mL (10.0-30.0) L 09/04/18 16:40 Ur Barbiturates Screen NEGATIVE (NEGATIVE) 09/04/18 16:50 Ur Tricyclics Screen POSITIVE (NEGATIVE) H 09/04/18 16:50 Ur Phencyclidine Scrn NEGATIVE (NEGATIVE) 09/04/18 16:50 Amphetamines Screen NEGATIVE (NEGATIVE) 09/04/18 16:50 U Methamphetamines Scrn NEGATIVE (NEGATIVE) 09/04/18 16:50 U Benzodiazepines Scrn POSITIVE (NEGATIVE) H 09/04/18 16:50 U Cocaine Metab Screen NEGATIVE (NEGATIVE) 09/04/18 16:50 U Cannabinoids Screen NEGATIVE (NEGATIVE) 09/04/18 16:50 Ethyl Alcohol < 10 mg/dL (0-10) 09/04/18 16:40 RPR NONREACTIVE (NONREACTIVE) 09/04/18 16:40 - Physical Exam Vitals and I&O: Vital Signs Temp 99.1 F 09/09/18 05:31 Pulse 85 09/09/18 06:59 Resp 18 09/09/18 06:59 BP 140/67 09/09/18 05:31 Pulse Ox 97 09/09/18 06:59 Intake & Output 09/08/18 09/09/18 09/09/18 18:59 06:59 18:59 Intake Total 2200 250 Balance 2200 250 Weight (lbs) 69.853 kg 68.039 kg Intake: Intake, IV Amount 1300 250 Cefepime 1 gm In Sodium 50 Chloride 0.9% 50 ml @ 100 mls/hr IV Q12HR BILL Rx#: [id number] D5-0.45NS 1,000 ml @ 75 1000 mls/hr IV .[id number] BILL Rx #:[id number] Vancomycin HCl 0.75 gm In 250 250 Sodium Chloride 0.9% 250 ml @ 165 mls/hr IV Q8HR BILL Rx#:[id number] Oral 900 Other: # Voids 4 # Bowel Movements 1 Weight Source Bedscale Bedscale Active Medications: Current Medications Acetaminophen (Tylenol) 650 mg PO Q4H PRN PRN Reason: Fever > 101 Stop: 11/04/18 15:06 Last Admin: 09/08/18 22:28 Dose: 650 mg Acetaminophen (Tylenol) 325 mg PO Q4HR PRN PRN Reason: Pain (Mild) Stop: 11/04/18 15:10 Acetaminophen (Tylenol) 650 mg PO Q4HR PRN PRN Reason: Pain (Moderate) Stop: 11/04/18 15:10 Albuterol Sulfate (Albuterol 2.5mg/3ml Neb Ud) 2.5 mg HHN Q4H PRN PRN Reason: Congestion Stop: 11/04/18 20:32 Last Admin: 09/05/18 22:33 Dose: 2.5 mg Albuterol Sulfate (Albuterol 2.5mg/3ml Neb Ud) 2.5 mg HHN Q6HRT BILL Stop: 11/05/18 00:59 Last Admin: 09/09/18 06:58 Dose: 2.5 mg Atorvastatin Calcium (Lipitor) 10 mg PO [facility]; Protocol Stop: 11/04/18 20:59 Last Admin: 09/08/18 22:29 Dose: 10 mg Dextrose/Sodium Chloride (D5-0.45ns) 1,000 mls @ 75 mls/hr IV .[id number] [facility] Stop: 11/03/18 22:17 Last Admin: 09/09/18 06:09 Dose: 75 mls/hr Cefepime HCl 1 gm/ Sodium (Chloride) 50 mls @ 100 mls/hr IV Q12HR [facility] Stop: 11/05/18 00:00 Last Admin: 09/08/18 22:28 Dose: 100 mls/hr Vancomycin HCl 0.75 gm/ Sodium (Chloride) 250 mls @ 165 mls/hr IV Q8HR [facility] Stop: 11/07/18 12:59 Last Admin: 09/09/18 05:23 Dose: 165 mls/hr Lactobacillus Rhamnosus (Culturelle 15b) 1 each PO DAILY [facility] Stop: 11/06/18 08:59 Last Admin: 09/08/18 09:13 Dose: 1 each Lorazepam (Ativan) 1 mg IVP Q6HR PRN; Protocol PRN Reason: Agitation Stop: 11/04/18 18:52 Last Admin: 09/09/18 05:22 Dose: 1 mg Mirtazapine (Remeron) 7.5 mg PO [facility]; Protocol Stop: 11/06/18 20:59 Last Admin: 09/08/18 22:29 Dose: 7.5 mg Miscellaneous (Vancomycin Iv Per Pharmacy) 1 ea MC PRN PRN PRN Reason: PROTOCOL Stop: 11/04/18 22:05 Miscellaneous (Probiotic Screen) 1 ea PRN PRN PRN Reason: PROTOCOL Stop: 11/05/18 13:22 General: Alert, No acute distress HEENT: Atraumatic Neck: Supple Abdomen: Soft, no Tender, no Hepatomegaly, no Splenomegaly, no Rebound, no Mass , no Guarding Skin: no Rash Assessment/Plan - Assessment Assessment: # [place]'s chorea # Dementia # Poor oral intake The pt has [place]'s disease as per history obtained by the nursing staff. If this is confirmed, this is an incredibly progressive and debilitating disorder that certainly will cause dysphagia, dementia, and behavioral issues as it goes forward. He had reported poor oral intake at his SNF, but has been eating here. However, may have aspirated recently. He did pass his swallowing evaluation by Speech therapist 09/06. Plan: - Oral diet as per Speech. Aspiration precautions. May need G tube insertion if recurrent aspiration. Will need to find out from his guardian if a G tube is desired. A G tube may extend his life, but will not change the quality of his life at all - IV fluids as needed. - Pending Neuro consult for [place]'s disease, although there are essentially no management options
[2018-09-09] MEDS: Cefepime 1 GM in Sodium Chloride 0.9% 50 ML IV SCH (09:24)
[2018-09-09] MEDS: Lactobacillus Rhamnosus GG 15 Billion CFU CAP.SPRINK PO SCH (09:27)
[2018-09-09] MEDS: Multivitamin w/ Minerals Tab PO SCH (09:27)
--- NOTE | 2018-09-09 10:32 | Internal Medicine Prog Note ---
Internal Medicine Subjective - Subjective Patient seen and examined:: chart reviewed Patient is:: awake Per staff patient has:: no adverse event, tolerating meds Internal Medicine Objective - Results Result Diagrams: 09/09/18 07:20 09/09/18 07:20 Recent Labs: Laboratory Last Values WBC 7.1 Th/cmm (4.8-10.8) 09/09/18 07:20 RBC 4.19 Mil/cmm (4.30-5.70) L 09/09/18 07:20 Hgb 12.8 gm/dL (12-16) 09/09/18 07:20 Hct 37.9 % (41.0-60) L 09/09/18 07:20 MCV 90.3 fl (80-99) 09/09/18 07:20 MCH 30.6 pg (26.0-30.0) H 09/09/18 07:20 MCHC Differential 33.9 pg (28.0-36.0) 09/09/18 07:20 RDW 12.2 % (11.5-20.0) 09/09/18 07:20 Plt Count 269 Th/cmm (150-400) 09/09/18 07:20 MPV 7.9 fl 09/09/18 07:20 Neutrophils % 66.0 % (40.0-80.0) 09/09/18 07:20 Lymphocytes % 17.7 % (20.0-50.0) L 09/09/18 07:20 Monocytes % 11.6 % (2.0-10.0) H 09/09/18 07:20 Eosinophils % 4.1 % (0.0-5.0) 09/09/18 07:20 Basophils % 0.6 % (0.0-2.0) 09/09/18 07:20 PT 9.6 SECONDS (9.5-11.5) 09/04/18 16:40 INR 0.92 (0.5-1.4) 09/04/18 16:40 PTT (Actin FS) 25.2 SECONDS (26.0-38.0) L 09/04/18 16:40 Sodium 146 mEq/L (136-145) H 09/09/18 07:20 Potassium 3.9 mEq/L (3.5-5.1) 09/09/18 07:20 Chloride 112 mEq/L (98-107) H 09/09/18 07:20 Carbon Dioxide 25.3 mEq/L (21.0-31.0) 09/09/18 07:20 Anion Gap 12.6 (7.0-16.0) 09/09/18 07:20 BUN 14 mg/dL (7-25) 09/09/18 07:20 Creatinine 0.8 mg/dL (0.7-1.3) 09/09/18 07:20 Est GFR ( Amer) > 60.0 ml/min (>90) 09/09/18 07:20 Est GFR (Non-Af Amer) > 60.0 ml/min 09/09/18 07:20 BUN/Creatinine Ratio 17.5 09/09/18 07:20 Glucose 99 mg/dL (70-105) 09/09/18 07:20 Whole Bld Lactic Acid 1.45 mmol/L (0.60-1.99) 09/04/18 16:40 Calcium 9.5 mg/dL (8.6-10.3) 09/09/18 07:20 Total Bilirubin 0.7 mg/dL (0.3-1.0) 09/07/18 18:00 AST 131 U/L (13-39) H 09/07/18 18:00 ALT 86 U/L (7-52) H 09/07/18 18:00 Alkaline Phosphatase 68 U/L (34-104) 09/07/18 18:00 Creatine Kinase 131 U/L (30-223) 09/04/18 16:40 Troponin I 0.01 ng/mL (0.01-0.05) 09/04/18 16:40 Total Protein 6.3 gm/dL (6.0-8.3) 09/07/18 18:00 Albumin 3.3 gm/dL (4.2-5.5) L 09/07/18 18:00 Globulin 3.0 gm/dL 09/07/18 18:00 Albumin/Globulin Ratio 1.1 (1.0-1.8) 09/07/18 18:00 Triglycerides 93 mg/dL (<150) 09/04/18 16:40 Cholesterol 156 mg/dL (<200) 09/04/18 16:40 LDL Cholesterol Direct 90 mg/dL (75-193) 09/04/18 16:40 HDL Cholesterol 47 mg/dL (23-92) 09/04/18 16:40 Lipase 27 U/L (11-82) 09/05/18 04:25 TSH 0.58 uIU/ml (0.34-5.60) 09/05/18 04:25 Urine Source CLEAN C 09/04/18 16:50 Urine Color YELLOW 09/04/18 16:50 Urine Clarity CLEAR (CLEAR) 09/04/18 16:50 Urine pH 7.5 (4.6 - 8.0) 09/04/18 16:50 Ur Specific [place] 1.015 (1.005-1.030) 09/04/18 16:50 Urine Protein NEGATIVE mg/dL (NEGATIVE) 09/04/18 16:50 Urine Glucose (UA) NEGATIVE mg/dL (NEGATIVE) 09/04/18 16:50 Urine Ketones NEGATIVE mg/dL (NEGATIVE) 09/04/18 16:50 Urine Blood NEGATIVE (NEGATIVE) 09/04/18 16:50 Urine Nitrate NEGATIVE (NEGATIVE) 09/04/18 16:50 Urine Bilirubin NEGATIVE (NEGATIVE) 09/04/18 16:50 Urine Urobilinogen 0.2 E.U./dL (0.2 - 1.0) 09/04/18 16:50 Ur Leukocyte Esterase NEGATIVE (NEGATIVE) 09/04/18 16:50 Urine RBC NONE SEEN /hpf (0-5) 09/04/18 16:50 Urine WBC 0-2 /hpf (0-5) 09/04/18 16:50 Ur Epithelial Cells FEW /lpf (FEW) 09/04/18 16:50 Amorphous Sediment FEW PHOSPHATES (NONE SEEN) 09/04/18 16:50 Urine Bacteria FEW /hpf (NONE SEEN) 09/04/18 16:50 Vancomycin Trough 9.3 ug/mL (5-10) 09/08/18 11:49 Salicylates < 25.0 mg/L (30.0-100.0) L 09/04/18 16:40 Urine Opiates Screen NEGATIVE (NEGATIVE) 09/04/18 16:50 Urine Methadone Screen NEGATIVE (NEGATIVE) 09/04/18 16:50 Acetaminophen < 10.0 ug/mL (10.0-30.0) L 09/04/18 16:40 Ur Barbiturates Screen NEGATIVE (NEGATIVE) 09/04/18 16:50 Ur Tricyclics Screen POSITIVE (NEGATIVE) H 09/04/18 16:50 Ur Phencyclidine Scrn NEGATIVE (NEGATIVE) 09/04/18 16:50 Amphetamines Screen NEGATIVE (NEGATIVE) 09/04/18 16:50 U Methamphetamines Scrn NEGATIVE (NEGATIVE) 09/04/18 16:50 U Benzodiazepines Scrn POSITIVE (NEGATIVE) H 09/04/18 16:50 U Cocaine Metab Screen NEGATIVE (NEGATIVE) 09/04/18 16:50 U Cannabinoids Screen NEGATIVE (NEGATIVE) 09/04/18 16:50 Ethyl Alcohol < 10 mg/dL (0-10) 09/04/18 16:40 RPR NONREACTIVE (NONREACTIVE) 09/04/18 16:40 - Physical Exam Vitals and I&O: Vital Signs Temp 99.1 F 09/09/18 05:31 Pulse 85 09/09/18 06:59 Resp 18 09/09/18 06:59 BP 140/67 09/09/18 05:31 Pulse Ox 97 09/09/18 06:59 Intake & Output 09/08/18 09/09/18 09/09/18 18:59 06:59 18:59 Intake Total 2200 300 248.75 Balance 2200 300 248.75 Weight (lbs) 69.853 kg 68.039 kg Intake: Intake, IV Amount 1300 300 248.75 Cefepime 1 gm In Sodium 50 50 Chloride 0.9% 50 ml @ 100 mls/hr IV Q12HR BILL Rx#: [id number] D5-0.45NS 1,000 ml @ 75 1000 248.75 mls/hr IV .[id number] BILL Rx #:[id number] Vancomycin HCl 0.75 gm In 250 250 Sodium Chloride 0.9% 250 ml @ 165 mls/hr IV Q8HR BILL Rx#:[id number] Oral 900 Other: # Voids 4 # Bowel Movements 1 Weight Source Bedscale Bedscale Active Medications: Current Medications Acetaminophen (Tylenol) 650 mg PO Q4H PRN PRN Reason: Fever > 101 Stop: 11/04/18 15:06 Last Admin: 09/08/18 22:28 Dose: 650 mg Acetaminophen (Tylenol) 325 mg PO Q4HR PRN PRN Reason: Pain (Mild) Stop: 11/04/18 15:10 Acetaminophen (Tylenol) 650 mg PO Q4HR PRN PRN Reason: Pain (Moderate) Stop: 11/04/18 15:10 Albuterol Sulfate (Albuterol 2.5mg/3ml Neb Ud) 2.5 mg HHN Q4H PRN PRN Reason: Congestion Stop: 11/04/18 20:32 Last Admin: 09/05/18 22:33 Dose: 2.5 mg Albuterol Sulfate (Albuterol 2.5mg/3ml Neb Ud) 2.5 mg HHN Q6HRT BILL Stop: 11/05/18 00:59 Last Admin: 09/09/18 06:58 Dose: 2.5 mg Atorvastatin Calcium (Lipitor) 10 mg PO HS [facility]; Protocol Stop: 11/04/18 20:59 Last Admin: 09/08/18 22:29 Dose: 10 mg Dextrose/Sodium Chloride (D5-0.45ns) 1,000 mls @ 75 mls/hr IV .[id number] [facility] Stop: 11/03/18 22:17 Last Admin: 09/09/18 09:28 Dose: 75 mls/hr Cefepime HCl 1 gm/ Sodium (Chloride) 50 mls @ 100 mls/hr IV Q12HR [facility] Stop: 11/05/18 00:00 Last Admin: 09/09/18 09:24 Dose: 100 mls/hr Vancomycin HCl 0.75 gm/ Sodium (Chloride) 250 mls @ 165 mls/hr IV Q8HR [facility] Stop: 11/07/18 12:59 Last Admin: 09/09/18 05:23 Dose: 165 mls/hr Lactobacillus Rhamnosus (Culturelle 15b) 1 each PO DAILY [facility] Stop: 11/06/18 08:59 Last Admin: 09/09/18 09:27 Dose: 1 each Lorazepam (Ativan) 1 mg IVP Q6HR PRN; Protocol PRN Reason: Agitation Stop: 11/04/18 18:52 Last Admin: 09/09/18 05:22 Dose: 1 mg Mirtazapine (Remeron) 7.5 mg PO HS [facility]; Protocol Stop: 11/06/18 20:59 Last Admin: 09/08/18 22:29 Dose: 7.5 mg Miscellaneous (Vancomycin Iv Per Pharmacy) 1 ea MC PRN PRN PRN Reason: PROTOCOL Stop: 11/04/18 22:05 Miscellaneous (Probiotic Screen) 1 ea PRN PRN PRN Reason: PROTOCOL Stop: 11/05/18 13:22 General: alert HEENT: NC/AT Neck: Supple Lungs: CTAB Cardiovascular: Normal S1, Normal S2 Abdomen: soft, non-tender Extremities: clear Internal Medicine Assmt/Plan - Assessment Assessment: poor oral intake dementia [place] chorea - Plan Plan: as per order sheet Nutritional Asmnt/Malnutr-PDOC - Dietary Evaluation Malnutrition Findings (Please click <Entered> for more info): Nutritional Asmnt/Malnutrition Start: 09/05/18 12: 57 Text: Status: Complete Freq: Protocol: Document 09/05/18 12:57 LILLYTHIERRY (Rec: 09/05/18 13:13 NADEGE [email or web address]) Nutritional Asmnt/Malnutrition Patient General Information Nutritional Screening High Risk Consult Diagnosis FTT, generalized weakness Pertinent Medical Hx/Surgical Hx dyslipidemia, seizures, dementia [place]'s Disease (per nurse note) Subjective Information Received diet consult for FTT. Poor oral intake x 3 days before admission per MD note, Pt is confused and disoriented and unable to speak w/ RD. Pt appears to require assistance w/ meals. Spoke with RN Gabby who stated pt consumed 100% of breakfast this morning. Current Diet Order/ Nutrition Support pureed, double portions Pertinent Medications D5-0.45ns Pertinent Labs 09/05: glucose 106, Alb 3.7 09/04: glucose 113-117, Alb 3. 9 Nutritional Hx/Data Height 1.73 m Height (Calculated Centimeters) 172.7 Current Weight (lbs) 70.08 kg Weight (Calculated Kilograms) 70.1 Weight (Calculated Grams) 62731.0 [place] Body Weight 154 lb Body Mass Index (BMI) 23.5 Weight Status Approriate GI Symptoms GI Symptoms None Last BM none noted Difficult in: None Food Allergies No Skin Integrity/Comment: cassius dave 12 scars Estimated Nutritional Goals BEE in Kcals: Using Current wt Calories/Kcals/Kg 27-30 Kcals Calculated 9943-6349 Protein: Using Current wt Protein g/k Protein Calculated 70 g Fluid: ml 1527-0321 (1 ml/kcal) Nutritional Problem 1. Problem Problem Inadequate oral intake Etiology possible poor appetite before admission Signs/Symptoms: poor oral intake and weakness x 3 days before admission per MD note Malnutrition Related to Morbid Obesity Malnutrition related to morbid obesity No Intervention/Recommendation Comments 1. Continue with pureed diet w / double portions as ordered and assist with meals as needed 2. Consider adding nutrition supplement if PO intake <50% 3. Monitor PO intake, wt, labs and skin integrity 4. F/U as risk in 2-3 days, - Expected Outcomes/Goals Expected Outcomes/Goals 1. PO intake to meet at least 50% of all meals w/ double portions 2. Wt stability, skin to remain intact, labs to approach WNL Reviewed by Ni Vergara RD
--- NOTE | 2018-09-09 22:55 | Progress Notes ---
DATE: 09/09/2018 Case was discussed with staff of the patient, reviewed records. The patient continues to be confused. He has [place]'s chorea. Continues to have poor insight, easily agitated, unable to make safe plan for self-care. He is admitted because of not eating, weakness. He is compliant with the medication with no side effects, no sedation, no nausea. Thank you very much for allowing me to participate in the care of this most interesting gentleman. JOB# [id number]
--- NOTE | 2018-09-09 23:01 | Progress Notes ---
DATE: 09/09/2018 SUBJECTIVE: The patient is in bed, sleepy, will awaken. Less movement today. The patient has limited interaction. Moves upper and lower extremities. PHYSICAL EXAMINATION: VITAL SIGNS: 99.1, blood pressure 140/68, pulse is 102. NECK: Supple. No neck bruits. CARDIOVASCULAR: Heart sounds S1, S2. RESPIRATORY: Lungs clear. NEUROLOGIC: The patient has less movement at this time. Somewhat calmer. ASSESSMENT: 1. Abnormal movements. 2. Encephalopathy. 3. [place] disease 4. Dementia. 5. Poor oral intake. PLAN: Continue present treatment. GI noted. JOB# [id number]
--- NOTE | 2018-09-17 00:48 | Discharge Summary ---
DATE OF DISCHARGE: 09/09/2018 The patient came from [facility] and the patient came in because of increasing agitation. The patient known to have underlying psychosis, underlying dementia, hyperlipidemia as well as Parkinson disease. The patient has failure to thrive. The patient had a GI consult and neuro consult. The patient gradually improved and the patient was stable for discharge. FINAL DIAGNOSES: History of Parkinson's disease, ____, hyperlipidemia, dementia. The patient was sent back to [facility] where his doctor will be following the patient. CONDITION AT THE TIME OF DISCHARGE: Stable. JOB# [id number]
== END 2018-09-09 16:00 | DRG 56 ==
LOC: ER 16:16 → TELE 20:50
PROVIDERS: ADMIT Internal Medicine; ATTEND Internal Medicine
DX: G10 Huntington's disease (principal); J18.9 Pneumonia, unspecified organism; J96.91 Respiratory failure, unspecified with hypoxia; E46 Unspecified protein-calorie malnutrition; N39.0 Urinary tract infection, site not specified; G93.40 Encephalopathy, unspecified; J20.9 Acute bronchitis, unspecified; R62.7 Adult failure to thrive; E78.5 Hyperlipidemia, unspecified; F02.80 Dementia in other diseases classified elsewhere, unspecified severity, without behavioral disturbance, psychotic disturbance, mood disturbance, and anxiety; R56.9 Unspecified convulsions; E86.0 Dehydration; F32.9 Major depressive disorder, single episode, unspecified; Z82.49 Family history of ischemic heart disease and other diseases of the circulatory system; Z68.22 Body mass index [BMI] 22.0-22.9, adult
CPT/HCPCS: 36415-UA; 71045-TC; 74000-TC; 80048-TC; 80053-TC; 80061-TC; 80202-TC; 80307; 80320-TC; 80329-TC; 81001-TC; 82550-TC; 82948-90; 83605; 83690-TC; 84443-TC; 84484-TC; 85025-TC; 85610-TC; 85730-TC; 86592-TC; 94640; 94760; J0692; J0696; J2060; J3370; J7030; J7042; J7613; X3401; Z7610